=== PATIENT | male | born 1980 | race Caucasian/White ===

== ENCOUNTER 2016-07-09 20:53 | Emergency (ER) | payer BC, MEDICAID ==
[2016-07-09] MEDS ORDERED: CLINDAMYCIN 150 MG CAP As Ordered ONE (22:38)
[2016-07-09] MEDS ORDERED: IBUPROFEN 800 MG TAB As Ordered ONE (22:38)
--- NOTE | 2016-07-09 22:51 | EDDOCDS ---
Physician Documentation [facility] Name: Wilton Kimball Age: 36 yrs Sex: Male : 1980 Arrival Date: 07/09/2016 Time: 20:53 Bed Triage 2 Private MD: NO PRIMARY PHYSICIAN, . Disposition: 07/09/16 22:39 Discharged to Home/Self Care. Impression: Acute serous otitis media, bilateral, Acute upper respiratory infection, unspecified. - Condition is Stable. - Discharge Instructions: Otitis Media, Adult, Upper Respiratory Infection, Adult. - Prescriptions for Clindamycin HCl 300 mg Oral Capsule - take 1 capsule by ORAL route every 6 hours; 40 capsule. Fluticasone 50 mcg/actuation Nasal [place], Suspension - inhale 2 spray by INTRANASAL route once daily; 1 bottle. - Medication Reconciliation, Local Pharmacy Hours form. - Follow up: Private Physician; When: Call to arrange an appointment; Reason: Recheck today's complaints, Continuance of care. - Problem is new. - Symptoms are unchanged. Historical: - Allergies: PENICILLINS; - Home Meds: 1. none - PMHx: none; - PSHx: hernia repair; left ankle surgery; - Social history: Smoking status: Patient uses tobacco products, heavy tobacco smoker. No barriers to communication noted, The patient speaks fluent Japanese, Speaks appropriately for age. - Family history: Not pertinent. - : The pt / caregiver states he / she is not on anticoagulants. Home medication list is obtained from the patient. - Exposure Risk Screening:: None identified. Vital Signs: 07/09 20:54 BP 158 / 62; Pulse 101; Resp 18 S; Temp 98.1(O); Pulse Ox 98% on R/A; Weight 145.15 kg gr2 / 320 lbs (R); Height 5 ft. 10 in. (177.80 cm) (R); Pain 4/10; 20:54 Body Mass Index 45.91 (145.15 kg, 177.80 cm) gr2 MDM: 22:35 Clindamycin 300 mg PO once ordered. mo1 22:35 Ibuprofen 800 mg PO once ordered. mo1 22:43 Financial registration complete. kathleen 22:48 [facility] Payment Agreement was scanned into [employer] and attached to record. gjb Administered Medications: 22:47 Drug: Clindamycin 300 mg [clindamycin 150 mg capsule (2 caps)] Route: PO; [facility] 22:47 Drug: Ibuprofen 800 mg Route: PO; [facility] Signatures: Dee Perez RN RN jo3 Hafner, Jane, RN RN [facility] David Perez PA PA mo1 Beck, Gabriela gjb The chart was reviewed and I authenticate all verbal orders and agree with the evaluation and treatment provided.Attachments: 22:48 [facility] Payment Agreement kathleen MTDD
--- NOTE | 2016-07-09 22:51 | EDDOCDS ---
Nurse's Notes [facility] Name: Wilton Kimball Age: 36 yrs Sex: Male : 1980 Arrival Date: 07/09/2016 Time: 20:53 Bed Triage 2 Private MD: NO PRIMARY PHYSICIAN, . Diagnosis: Acute serous otitis media, bilateral;Acute upper respiratory infection, unspecified Presentation: 07/09 21:11 Presenting complaint: Patient states: Cold symptoms x2 days. Adult Sepsis Screening: jo3 The patient does not have new or worsening altered mentation. Patient's respiratory rate is less than 22. Systolic blood pressure is greater than 100. Patient has a qSOFA score of 0- Negative Sepsis Screen. Suicide/Homicide risk assessment- the patient denies having any suicidal and/or homicidal ideations and does not present with any other emotional, behavioral or mental health complaints. Status: Patient is not a service planner or dependent. Transition of care: patient was not received from another setting of care. 21:11 Acuity: TYE Level 4 jo3 21:11 Method Of Arrival: Walkin/Carried/Asstd jo3 Triage Assessment: 21:11 General: Appears in no apparent distress, Behavior is appropriate for age, cooperative, jo3 pleasant. HIV screening NA for this visit Offered previously. Neurological: Level of Consciousness is awake, alert, Oriented to person, place, time. Respiratory: Airway. Derm: Skin is pink, warm & dry. Historical: - Allergies: PENICILLINS; - Home Meds: 1. none - PMHx: none; - PSHx: hernia repair; left ankle surgery; - Social history: Smoking status: Patient uses tobacco products, heavy tobacco smoker. No barriers to communication noted, The patient speaks fluent Urdu, Speaks appropriately for age. - Family history: Not pertinent. - : The pt / caregiver states he / she is not on anticoagulants. Home medication list is obtained from the patient. - Exposure Risk Screening:: None identified. Screenin:47 Screening information is obtained from the patient. Fall risk: No risks identified. [facility] Assistance ADL's: requires no assistance with activities of daily living. Abuse/DV Screen: The patient / caregiver reports he/she is: not in a situation that causes fear, pain or injury. Nutritional screening: No deficits noted. Advance Directives: There is no active DNR order. home support is adequate. Assessment: 22:47 General: Appears in no apparent distress, comfortable, Behavior is appropriate for age, cjh cooperative, first contact with patient, reviewed discharge instructions, encouraged and answered questions, patient declines further needs. 22:47 Neurological: Level of Consciousness is awake, alert, Oriented to person, place, time. [facility] Respiratory: Airway is patent Respiratory effort is even, unlabored, Respiratory pattern is regular, symmetrical. Derm: Skin is pink, warm & dry. Vital Signs: 20:54 BP 158 / 62; Pulse 101; Resp 18 S; Temp 98.1(O); Pulse Ox 98% on R/A; Weight 145.15 kg gr2 (R); Height 5 ft. 10 in. (177.80 cm) (R); Pain 4/10; 20:54 Body Mass Index 45.91 (145.15 kg, 177.80 cm) gr2 Vitals: 20:54 Log In Time: July 09, 2016 at 20:54. gr2 ED Course: 20:54 Patient visited by Bailey Tarango. gr2 20:54 NO PRIMARY PHYSICIAN, . is Private Physician. gr2 20:54 Patient moved to Waiting gr2 20:56 Patient visited by Bailey Tarango. gr2 20:56 Patient moved to Pre RCE gr2 21:11 Triage Initiated jo3 21:12 Patient visited by Dee Perez RN. jo3 22:19 Patient moved to Triage 2 jf3 22:29 David Perez PA is PHCP. mo1 22:29 Ace Skelton DO is Attending Physician. mo1 22:31 Patient visited by David Perez PA. mo1 22:47 The patient / caregiver is instructed regarding the plan of care and ED course. cjh 22:47 No IV's were initiated during this patient's visit. No procedures done that require [facility] assistance. 22:48 [facility] [place] Agreement was scanned into [employer] and attached to record. gjb Administered Medications: 22:47 Drug: Clindamycin 300 mg [clindamycin 150 mg capsule (2 caps)] Route: PO; cj 22:47 Drug: Ibuprofen 800 mg Route: PO; [facility] Order Results: There are currently no results for this order. Outcome: 22:39 Discharge ordered by Provider. mo1 22:47 Discharge Assessment: Patient awake, alert and oriented x 3. No cognitive and/or [facility] functional deficits noted. Patient verbalized understanding of disposition instructions. patient administered narcotics - no. The following High Risk Discharge criteria are identified: None. Discharged to home ambulatory, with significant other. Condition: good Condition: stable Condition: improved. Discharge instructions given to patient, Instructed on discharge instructions, follow up and referral plans. medication usage, Demonstrated understanding of instructions, medications, Pt was receptive of discharge instructions/ teaching. Prescriptions given X 2. No special radiology studies were completed. Property :Personal belongings accompany Pt. 22:50 Patient left the ED. [facility] Signatures: Dee Perez,RN RN jo3 Adelina MaloneRN RN [facility] Bailey Tarango2 David Perez PA PA mo1 Josh Saavedra,RN RN jf3 Rosette Scherer DELLA
--- NOTE | 2016-07-11 23:52 | EDDOCDS ---
Nurse's Notes [facility] Name: Wilton Kimball Age: 36 yrs Sex: Male : 1980 Arrival Date: 07/09/2016 Time: 20:53 Bed Triage 2 Private MD: NO PRIMARY PHYSICIAN, . Diagnosis: Acute serous otitis media, bilateral;Acute upper respiratory infection, unspecified Presentation: 07/09 21:11 Presenting complaint: Patient states: Cold symptoms x2 days. Adult Sepsis Screening: jo3 The patient does not have new or worsening altered mentation. Patient's respiratory rate is less than 22. Systolic blood pressure is greater than 100. Patient has a qSOFA score of 0- Negative Sepsis Screen. Suicide/Homicide risk assessment- the patient denies having any suicidal and/or homicidal ideations and does not present with any other emotional, behavioral or mental health complaints. Status: Patient is not a chief optometry service or dependent. Transition of care: patient was not received from another setting of care. 21:11 Acuity: TYE Level 4 jo3 21:11 Method Of Arrival: Walkin/Carried/Asstd jo3 Triage Assessment: 21:11 General: Appears in no apparent distress, Behavior is appropriate for age, cooperative, jo3 pleasant. HIV screening NA for this visit Offered previously. Neurological: Level of Consciousness is awake, alert, Oriented to person, place, time. Respiratory: Airway. Derm: Skin is pink, warm & dry. Historical: - Allergies: PENICILLINS; - Home Meds: 1. none - PMHx: none; - PSHx: hernia repair; left ankle surgery; - Social history: Smoking status: Patient uses tobacco products, heavy tobacco smoker. No barriers to communication noted, The patient speaks fluent Telugu, Speaks appropriately for age. - Family history: Not pertinent. - : The pt / caregiver states he / she is not on anticoagulants. Home medication list is obtained from the patient. - Exposure Risk Screening:: None identified. Screenin:47 Screening information is obtained from the patient. Fall risk: No risks identified. [facility] Assistance ADL's: requires no assistance with activities of daily living. Abuse/DV Screen: The patient / caregiver reports he/she is: not in a situation that causes fear, pain or injury. Nutritional screening: No deficits noted. Advance Directives: There is no active DNR order. home support is adequate. Assessment: 22:47 General: Appears in no apparent distress, comfortable, Behavior is appropriate for age, [facility] cooperative, first contact with patient, reviewed discharge instructions, encouraged and answered questions, patient declines further needs. 22:47 Neurological: Level of Consciousness is awake, alert, Oriented to person, place, time. [facility] Respiratory: Airway is patent Respiratory effort is even, unlabored, Respiratory pattern is regular, symmetrical. Derm: Skin is pink, warm & dry. Vital Signs: 20:54 BP 158 / 62; Pulse 101; Resp 18 S; Temp 98.1(O); Pulse Ox 98% on R/A; Weight 145.15 kg gr2 (R); Height 5 ft. 10 in. (177.80 cm) (R); Pain 4/10; 20:54 Body Mass Index 45.91 (145.15 kg, 177.80 cm) gr2 Vitals: 20:54 Log In Time: July 09, 2016 at 20:54. gr2 ED Course: 20:54 Patient visited by Bailey Tarango. gr2 20:54 NO PRIMARY PHYSICIAN, . is Private Physician. gr2 20:54 Patient moved to Waiting gr2 20:56 Patient visited by Bailey Tarango. gr2 20:56 Patient moved to Pre RCE gr2 21:11 Triage Initiated jo3 21:12 Patient visited by Dee Perez RN. jo3 22:19 Patient moved to Triage 2 jf3 22:29 David Perez PA is PHCP. mo1 22:29 Ace Skelton DO is Attending Physician. mo1 22:31 Patient visited by David Perez PA. mo1 22:47 The patient / caregiver is instructed regarding the plan of care and ED course. [facility] 22:47 No IV's were initiated during this patient's visit. No procedures done that require [facility] assistance. 22:48 [facility] Payment Agreement was scanned into [employer] and attached to record. kathleen 07/10 10:56 T-Sheet-- Draft Copy was scanned into [employer] and attached to record. gb Administered Medications: 07/09 22:47 Drug: Clindamycin 300 mg [clindamycin 150 mg capsule (2 caps)] Route: PO; cjh 22:47 Drug: Ibuprofen 800 mg Route: PO; [facility] Order Results: There are currently no results for this order. Outcome: 22:39 Discharge ordered by Provider. mo1 22:47 Discharge Assessment: Patient awake, alert and oriented x 3. No cognitive and/or [facility] functional deficits noted. Patient verbalized understanding of disposition instructions. patient administered narcotics - no. The following High Risk Discharge criteria are identified: None. Discharged to home ambulatory, with significant other. Condition: good Condition: stable Condition: improved. Discharge instructions given to patient, Instructed on discharge instructions, follow up and referral plans. medication usage, Demonstrated understanding of instructions, medications, Pt was receptive of discharge instructions/ teaching. Prescriptions given X 2. No special radiology studies were completed. Property :Personal belongings accompany Pt. 22:50 Patient left the ED. [facility] Signatures: Kim Kelley, Reg Reg Dee Drake,RN RN gilmer3 Adelina MaloneRN RN [facility] Bailey Tarango gr2 David Perez PA PA mo1 Josh Saavedra,LAURIE RN luis felipe3 Rosette Scherer Chart Complete JOHND
--- NOTE | 2016-07-11 23:52 | EDDOCDS ---
Physician Documentation [facility] Name: Wilton Kimball Age: 36 yrs Sex: Male : 1980 Arrival Date: 07/09/2016 Time: 20:53 Bed Triage 2 Private MD: NO PRIMARY PHYSICIAN, . Disposition: 07/09/16 22:39 Discharged to Home/Self Care. Impression: Acute serous otitis media, bilateral, Acute upper respiratory infection, unspecified. - Condition is Stable. - Discharge Instructions: Otitis Media, Adult, Upper Respiratory Infection, Adult. - Prescriptions for Clindamycin HCl 300 mg Oral Capsule - take 1 capsule by ORAL route every 6 hours; 40 capsule. Fluticasone 50 mcg/actuation Nasal [place], Suspension - inhale 2 spray by INTRANASAL route once daily; 1 bottle. - Medication Reconciliation, Local Pharmacy Hours form. - Follow up: Private Physician; When: Call to arrange an appointment; Reason: Recheck today's complaints, Continuance of care. - Problem is new. - Symptoms are unchanged. Historical: - Allergies: PENICILLINS; - Home Meds: 1. none - PMHx: none; - PSHx: hernia repair; left ankle surgery; - Social history: Smoking status: Patient uses tobacco products, heavy tobacco smoker. No barriers to communication noted, The patient speaks fluent Yakut, Speaks appropriately for age. - Family history: Not pertinent. - : The pt / caregiver states he / she is not on anticoagulants. Home medication list is obtained from the patient. - Exposure Risk Screening:: None identified. Vital Signs: 07/09 20:54 BP 158 / 62; Pulse 101; Resp 18 S; Temp 98.1(O); Pulse Ox 98% on R/A; Weight 145.15 kg gr2 / 320 lbs (R); Height 5 ft. 10 in. (177.80 cm) (R); Pain 4/10; 20:54 Body Mass Index 45.91 (145.15 kg, 177.80 cm) gr2 MDM: 22:35 Clindamycin 300 mg PO once ordered. mo1 22:35 Ibuprofen 800 mg PO once ordered. mo1 22:43 Financial registration complete. banner 22:48 [facility] Payment Agreement was scanned into [employer] and attached to record. xiomara 07/10 10:56 T-Sheet-- Draft Copy was scanned into [employer] and attached to record. gb Administered Medications: 07/09 22:47 Drug: Clindamycin 300 mg [clindamycin 150 mg capsule (2 caps)] Route: PO; [facility] 22:47 Drug: Ibuprofen 800 mg Route: PO; [facility] Signatures: Kim Kelley, Reg Reg gb Dee Perez RN RN jo3 Adelina Malone RN RN [facility] David Perez PA PA mo1 Beck, Gabriela gjb The chart was reviewed and I authenticate all verbal orders and agree with the evaluation and treatment provided.Attachments: 22:48 [facility] Payment Agreement gjb 07/10 10:56 T-Sheet-- Draft Copy Chart Complete MTDD
--- NOTE | 2016-07-11 23:52 | EDDOCDS ---
Physician Documentation [facility] Name: Wilton Kimball Age: 36 yrs Sex: Male : 1980 Arrival Date: 07/09/2016 Time: 20:53 Bed Triage 2 Private MD: NO PRIMARY PHYSICIAN, . Disposition: 07/09/16 22:39 Discharged to Home/Self Care. Impression: Acute serous otitis media, bilateral, Acute upper respiratory infection, unspecified. - Condition is Stable. - Discharge Instructions: Otitis Media, Adult, Upper Respiratory Infection, Adult. - Prescriptions for Clindamycin HCl 300 mg Oral Capsule - take 1 capsule by ORAL route every 6 hours; 40 capsule. Fluticasone 50 mcg/actuation Nasal [place], Suspension - inhale 2 spray by INTRANASAL route once daily; 1 bottle. - Medication Reconciliation, Local Pharmacy Hours form. - Follow up: Private Physician; When: Call to arrange an appointment; Reason: Recheck today's complaints, Continuance of care. - Problem is new. - Symptoms are unchanged. Historical: - Allergies: PENICILLINS; - Home Meds: 1. none - PMHx: none; - PSHx: hernia repair; left ankle surgery; - Social history: Smoking status: Patient uses tobacco products, heavy tobacco smoker. No barriers to communication noted, The patient speaks fluent Serbian, Speaks appropriately for age. - Family history: Not pertinent. - : The pt / caregiver states he / she is not on anticoagulants. Home medication list is obtained from the patient. - Exposure Risk Screening:: None identified. Vital Signs: 07/09 20:54 BP 158 / 62; Pulse 101; Resp 18 S; Temp 98.1(O); Pulse Ox 98% on R/A; Weight 145.15 kg gr2 / 320 lbs (R); Height 5 ft. 10 in. (177.80 cm) (R); Pain 4/10; 20:54 Body Mass Index 45.91 (145.15 kg, 177.80 cm) gr2 MDM: 22:35 Clindamycin 300 mg PO once ordered. mo1 22:35 Ibuprofen 800 mg PO once ordered. mo1 22:43 Financial registration complete. [facility] 22:48 [facility] Payment Agreement was scanned into [employer] and attached to record. [employer] 07/10 10:56 T-Sheet-- Draft Copy was scanned into [employer] and attached to record. gb Administered Medications: 07/09 22:47 Drug: Clindamycin 300 mg [clindamycin 150 mg capsule (2 caps)] Route: PO; [facility] 22:47 Drug: Ibuprofen 800 mg Route: PO; [facility] Signatures: Kim Kelley, Reg Reg gb Dee Perez RN RN jo3 Adelina Malone RN RN [facility] David Perez PA PA mo1 Beck, Gabriela gjb The chart was reviewed and I authenticate all verbal orders and agree with the evaluation and treatment provided.Attachments: 22:48 [facility] Payment Agreement gjb 07/10 10:56 T-Sheet-- Draft Copy Chart Complete MTDD
== END 2016-07-09 22:50 | disposition home or self-care (01) ==
LOC: M ED 20:53
DX: H65.03 Acute serous otitis media, bilateral (principal); J06.9 Acute upper respiratory infection, unspecified; F17.210 Nicotine dependence, cigarettes, uncomplicated; Z88.0 Allergy status to penicillin

== ENCOUNTER 2016-07-11 00:47 | Emergency (ER) | payer BC, MEDICAID ==
[2016-07-11] MEDS ORDERED: BENZONATATE 100 MG CAP As Ordered ONE (01:55)
--- NOTE | 2016-07-11 02:06 | EDDOCDS ---
Nurse's Notes [facility] Name: Wilton Kimball Age: 36 yrs Sex: Male : 1980 Arrival Date: 07/11/2016 Time: 00:47 Bed I5 / M5 Private MD: Diagnosis: Unspecified superficial injuries of left front wall of thorax-strain of muscle;Cough;Acute upper respiratory infection, unspecified Presentation: 07/11 00:57 Presenting complaint: Patient states: per pt was seen here last night for URI, was tm5 coughing tonight & heard a "pop" to left ribs. Acute neurological deficits are not present. Mechanism of Injury: No Mechanism of Injury. Adult Sepsis Screening: The patient does not have new or worsening altered mentation. Patient's respiratory rate is less than 22. Systolic blood pressure is greater than 100. Patient has a qSOFA score of 0- Negative Sepsis Screen. Suicide/Homicide risk assessment- the patient denies having any suicidal and/or homicidal ideations and does not present with any other emotional, behavioral or mental health complaints. Status: Patient is not a food service driver or dependent. Transition of care: patient was not received from another setting of care. 00:57 Acuity: TYE Level 4 tm5 00:57 Method Of Arrival: Ambulance tm5 00:58 Presenting complaint: EMS states: Pt was diagnosed with URI yesterday. Was coughing and jo3 started having left sided rib pain. states she wasn't about to let pt walk 6 blocks to hospital. Triage Assessment: 01:01 General: Appears in no apparent distress. Pain: Location: left ribs Pain currently is 7 tm5 out of 10 on a pain scale. HIV screening NA for this visit Offered previously. Neurological: Level of Consciousness is awake, alert, Oriented to person, place, time. Respiratory: Airway is patent Respiratory effort is even, unlabored, Respiratory pattern is regular, symmetrical. Musculoskeletal: No deficits noted. Historical: - Allergies: PENICILLINS; - Home Meds: 1. clindamycin HCl 300 mg Oral cap 1 cap every 6 hours 2. Flonase 50 mcg/actuation Nasal spsn 2 sprays once daily - PMHx: none; - PSHx: none; - Social history: Smoking status: Patient uses tobacco products, current every day smoker. No barriers to communication noted. - Family history: No immediate family members are acutely ill. - : The pt / caregiver states he / she is not on anticoagulants. Home medication list is obtained from the patient. - Exposure Risk Screening:: None identified. Screenin:04 Screening information is obtained from the patient. Fall risk: No risks identified. ld5 Assistance ADL's: requires no assistance with activities of daily living. Abuse/DV Screen: The patient / caregiver reports he/she is: not in a situation that causes fear, pain or injury. Nutritional screening: No deficits noted. Advance Directives: There is no active DNR order. home support is adequate. Assessment: 02:04 General: Appears in no apparent distress, Behavior is cooperative. Neurological: Level ld5 of Consciousness is awake, alert. Respiratory: Airway is patent Respiratory effort is even, unlabored, Reports cough that is hacking, persistent. GI: Abdomen is obese. Derm: Skin is intact, Skin is dry. Vital Signs: 01:01 BP 162 / 80; Pulse 102; Resp 20; Temp 99.2(O); Pulse Ox 98% on R/A; Pain 7/10; tm5 Vitals: 01:01 Log In Time N/A - ambulance arrival. tm5 ED Course: 00:49 Patient visited by Mery Villarreal Reg. hs2 00:49 Patient moved to Waiting hs2 01:00 Triage Initiated tm5 01:03 Patient moved to I5 / M5 tm5 01:26 David Perez PA is PHCP. mo1 01:26 Ace Skelton DO is Attending Physician. mo1 01:45 Patient visited by David Perez PA. mo1 02:04 The patient / caregiver is instructed regarding the plan of care and ED course. Patient ld5 has correct armband on for positive identification. 02:04 No IV's were initiated during this patient's visit. No procedures done that require ld5 assistance. 02:05 Patient visited by Vicki Ramirez RN. ld5 Administered Medications: 02:04 Drug: Tessalon 200 mg Route: PO; ld5 Order Results: There are currently no results for this order. Outcome: 01:53 Discharge ordered by Provider. mo1 02:04 Discharge Assessment: Patient awake, alert and oriented x 3. No cognitive and/or ld5 functional deficits noted. Patient verbalized understanding of disposition instructions. patient administered narcotics - no. The following High Risk Discharge criteria are identified: None. Discharged to home ambulatory, with significant other. Condition: stable. Discharge instructions given to patient, significant other, Instructed on discharge instructions, follow up and referral plans. medication usage, Demonstrated understanding of instructions, medications, Pt was receptive of discharge instructions/ teaching. Prescriptions given X 1. No special radiology studies were completed. Property :Personal belongings accompany Pt. 02:05 Patient left the ED. ld5 Signatures: Dee Perez,RN RN jo3 Vicki RamirezRN RN ld5 David Perez PA PA mo1 Mery Villarreal, Reg Reg hs2 Clare Gonzalez,RN RN tm5 MTDD
--- NOTE | 2016-07-11 02:06 | EDDOCDS ---
Physician Documentation [facility] Name: Wilton Kimball Age: 36 yrs Sex: Male : 1980 Arrival Date: 07/11/2016 Time: 00:47 Bed I5 / M5 Private MD: Disposition: 07/11/16 01:53 Discharged to Home/Self Care. Impression: Unspecified superficial injuries of left front wall of thorax - strain of muscle, Cough, Acute upper respiratory infection, unspecified. - Condition is Stable. - Discharge Instructions: Chest Wall Pain, Muscle Strain. - Prescriptions for benzonatate 200 mg Oral Capsule - take 1 capsule by ORAL route 3 times per day As needed; 30 capsule. - Medication Reconciliation, Local Pharmacy Hours form. - Follow up: Private Physician; When: Call to arrange an appointment; Reason: Recheck today's complaints, Continuance of care. - Problem is new. - Symptoms are unchanged. Historical: - Allergies: PENICILLINS; - Home Meds: 1. clindamycin HCl 300 mg Oral cap 1 cap every 6 hours 2. Flonase 50 mcg/actuation Nasal spsn 2 sprays once daily - PMHx: none; - PSHx: none; - Social history: Smoking status: Patient uses tobacco products, current every day smoker. No barriers to communication noted. - Family history: No immediate family members are acutely ill. - : The pt / caregiver states he / she is not on anticoagulants. Home medication list is obtained from the patient. - Exposure Risk Screening:: None identified. Vital Signs: 07/11 01:01 BP 162 / 80; Pulse 102; Resp 20; Temp 99.2(O); Pulse Ox 98% on R/A; Pain 7/10; tm5 MDM: 01:52 Tessalon 200 mg PO once ordered. mo1 02:03 Financial registration complete. [facility] Administered Medications: 02:04 Drug: Tessalon 200 mg Route: PO; ld5 Signatures: Vicki RamirezRN RN ld5 David Perez PA PA mo1 Kandice Clifford [facility] Clare Gonzalez RN RN tm5 MTDD
--- NOTE | 2016-07-13 03:06 | EDDOCDS ---
Physician Documentation [facility] Name: Wilton Kimball Age: 36 yrs Sex: Male : 1980 Arrival Date: 07/11/2016 Time: 00:47 Bed I5 / M5 Private MD: Disposition: 07/11/16 01:53 Discharged to Home/Self Care. Impression: Unspecified superficial injuries of left front wall of thorax - strain of muscle, Cough, Acute upper respiratory infection, unspecified. - Condition is Stable. - Discharge Instructions: Chest Wall Pain, Muscle Strain. - Prescriptions for benzonatate 200 mg Oral Capsule - take 1 capsule by ORAL route 3 times per day As needed; 30 capsule. - Medication Reconciliation, Local Pharmacy Hours form. - Follow up: Private Physician; When: Call to arrange an appointment; Reason: Recheck today's complaints, Continuance of care. - Problem is new. - Symptoms are unchanged. Historical: - Allergies: PENICILLINS; - Home Meds: 1. clindamycin HCl 300 mg Oral cap 1 cap every 6 hours 2. Flonase 50 mcg/actuation Nasal spsn 2 sprays once daily - PMHx: none; - PSHx: none; - Social history: Smoking status: Patient uses tobacco products, current every day smoker. No barriers to communication noted. - Family history: No immediate family members are acutely ill. - : The pt / caregiver states he / she is not on anticoagulants. Home medication list is obtained from the patient. - Exposure Risk Screening:: None identified. Vital Signs: 07/11 01:01 BP 162 / 80; Pulse 102; Resp 20; Temp 99.2(O); Pulse Ox 98% on R/A; Pain 7/10; tm5 MDM: 01:52 Tessalon 200 mg PO once ordered. mo1 02:03 Financial registration complete. [facility] 02:11 [facility] Payment Agreement was scanned into [employer] and attached to record. [facility] 14:05 T-Sheet-- Draft Copy was scanned into [employer] and attached to record. gb Administered Medications: 02:04 Drug: Tessalon 200 mg Route: PO; ld5 Signatures: Kim Kelley, Reg Reg Vicki Ramirez,RN RN ld5 David Perez PA PA mo1 Kandice Clifford [facility] Matice,Clare,RN RN tm5 The chart was reviewed and I authenticate all verbal orders and agree with the evaluation and treatment provided.Attachments: 02:11 [facility] Payment Agreement [facility] 14:05 T-Sheet-- Draft Copy gb Chart Complete MTDD
--- NOTE | 2016-07-13 03:06 | EDDOCDS ---
Nurse's Notes [facility] Name: Wilton Kimball Age: 36 yrs Sex: Male : 1980 Arrival Date: 07/11/2016 Time: 00:47 Bed I5 / M5 Private MD: Diagnosis: Unspecified superficial injuries of left front wall of thorax-strain of muscle;Cough;Acute upper respiratory infection, unspecified Presentation: 07/11 00:57 Presenting complaint: Patient states: per pt was seen here last night for URI, was tm5 coughing tonight & heard a "pop" to left ribs. Acute neurological deficits are not present. Mechanism of Injury: No Mechanism of Injury. Adult Sepsis Screening: The patient does not have new or worsening altered mentation. Patient's respiratory rate is less than 22. Systolic blood pressure is greater than 100. Patient has a qSOFA score of 0- Negative Sepsis Screen. Suicide/Homicide risk assessment- the patient denies having any suicidal and/or homicidal ideations and does not present with any other emotional, behavioral or mental health complaints. 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 Transition of care: patient was not received from another setting of care. 00:57 Acuity: TYE Level 4 tm5 00:57 Method Of Arrival: Ambulance tm5 00:58 Presenting complaint: EMS states: Pt was diagnosed with URI yesterday. Was coughing and jo3 started having left sided rib pain. states she wasn't about to let pt walk 6 blocks to hospital. Triage Assessment: 01:01 General: Appears in no apparent distress. Pain: Location: left ribs Pain currently is 7 tm5 out of 10 on a pain scale. HIV screening NA for this visit Offered previously. Neurological: Level of Consciousness is awake, alert, Oriented to person, place, time. Respiratory: Airway is patent Respiratory effort is even, unlabored, Respiratory pattern is regular, symmetrical. Musculoskeletal: No deficits noted. Historical: - Allergies: PENICILLINS; - Home Meds: 1. clindamycin HCl 300 mg Oral cap 1 cap every 6 hours 2. Flonase 50 mcg/actuation Nasal spsn 2 sprays once daily - PMHx: none; - PSHx: none; - Social history: Smoking status: Patient uses tobacco products, current every day smoker. No barriers to communication noted. - Family history: No immediate family members are acutely ill. - : The pt / caregiver states he / she is not on anticoagulants. Home medication list is obtained from the patient. - Exposure Risk Screening:: None identified. Screenin:04 Screening information is obtained from the patient. Fall risk: No risks identified. ld5 Assistance ADL's: requires no assistance with activities of daily living. Abuse/DV Screen: The patient / caregiver reports he/she is: not in a situation that causes fear, pain or injury. Nutritional screening: No deficits noted. Advance Directives: There is no active DNR order. home support is adequate. Assessment: 02:04 General: Appears in no apparent distress, Behavior is cooperative. Neurological: Level ld5 of Consciousness is awake, alert. Respiratory: Airway is patent Respiratory effort is even, unlabored, Reports cough that is hacking, persistent. GI: Abdomen is obese. Derm: Skin is intact, Skin is dry. Vital Signs: 01:01 BP 162 / 80; Pulse 102; Resp 20; Temp 99.2(O); Pulse Ox 98% on R/A; Pain 7/10; tm5 Vitals: 01:01 Log In Time N/A - ambulance arrival. tm5 ED Course: 00:49 Patient visited by Mery Villarreal Reg. hs2 00:49 Patient moved to Waiting hs2 01:00 Triage Initiated tm5 01:03 Patient moved to I5 / M5 tm5 01:26 David Perez PA is PHCP. mo1 01:26 Ace Skelton DO is Attending Physician. mo1 01:45 Patient visited by David Perez PA. mo1 02:04 The patient / caregiver is instructed regarding the plan of care and ED course. Patient ld5 has correct armband on for positive identification. 02:04 No IV's were initiated during this patient's visit. No procedures done that require ld5 assistance. 02:05 Patient visited by Vicki Ramirez RN. ld5 02:11 [facility] Payment Agreement was scanned into [employer] and attached to record. [facility] 14:05 T-Sheet-- Draft Copy was scanned into [employer] and attached to record. gb Administered Medications: 02:04 Drug: Tessalon 200 mg Route: PO; ld5 Order Results: There are currently no results for this order. Outcome: 01:53 Discharge ordered by Provider. mo1 02:04 Discharge Assessment: Patient awake, alert and oriented x 3. No cognitive and/or ld5 functional deficits noted. Patient verbalized understanding of disposition instructions. patient administered narcotics - no. The following High Risk Discharge criteria are identified: None. Discharged to home ambulatory, with significant other. Condition: stable. Discharge instructions given to patient, significant other, Instructed on discharge instructions, follow up and referral plans. medication usage, Demonstrated understanding of instructions, medications, Pt was receptive of discharge instructions/ teaching. Prescriptions given X 1. No special radiology studies were completed. Property :Personal belongings accompany Pt. 02:05 Patient left the ED. ld5 Signatures: Kim Kelley, Reg Reg gb Dee PerezRN RN jo3 Vicki Ramirez,RN RN ld5 David Perez PA PA mo1 Kandice Clifford Mery Atwood, Reg Reg hs2 Clare Gonzalez,RN RN tm5 Chart Complete [facility]
--- NOTE | 2016-07-13 03:06 | EDDOCDS ---
Physician Documentation [facility] Name: Wilton Kimball Age: 36 yrs Sex: Male : 1980 Arrival Date: 07/11/2016 Time: 00:47 Bed I5 / M5 Private MD: Disposition: 07/11/16 01:53 Discharged to Home/Self Care. Impression: Unspecified superficial injuries of left front wall of thorax - strain of muscle, Cough, Acute upper respiratory infection, unspecified. - Condition is Stable. - Discharge Instructions: Chest Wall Pain, Muscle Strain. - Prescriptions for benzonatate 200 mg Oral Capsule - take 1 capsule by ORAL route 3 times per day As needed; 30 capsule. - Medication Reconciliation, Local Pharmacy Hours form. - Follow up: Private Physician; When: Call to arrange an appointment; Reason: Recheck today's complaints, Continuance of care. - Problem is new. - Symptoms are unchanged. Historical: - Allergies: PENICILLINS; - Home Meds: 1. clindamycin HCl 300 mg Oral cap 1 cap every 6 hours 2. Flonase 50 mcg/actuation Nasal spsn 2 sprays once daily - PMHx: none; - PSHx: none; - Social history: Smoking status: Patient uses tobacco products, current every day smoker. No barriers to communication noted. - Family history: No immediate family members are acutely ill. - : The pt / caregiver states he / she is not on anticoagulants. Home medication list is obtained from the patient. - Exposure Risk Screening:: None identified. Vital Signs: 07/11 01:01 BP 162 / 80; Pulse 102; Resp 20; Temp 99.2(O); Pulse Ox 98% on R/A; Pain 7/10; tm5 MDM: 01:52 Tessalon 200 mg PO once ordered. mo1 02:03 Financial registration complete. [facility] [address] 02:11 [facility] Payment Agreement was scanned into [employer] and attached to record. [facility] [address] 14:05 T-Sheet-- Draft Copy was scanned into [employer] and attached to record. gb Administered Medications: 02:04 Drug: Tessalon 200 mg Route: PO; ld5 Signatures: Kim Kelley, Reg Reg Vicki Ramirez,RN RN ld5 David Perez PA PA mo1 Kandice Clifford [facility] [address] Matice,Clare,RN RN tm5 The chart was reviewed and I authenticate all verbal orders and agree with the evaluation and treatment provided.Attachments: 02:11 [facility] Payment Agreement [facility] 14:05 T-Sheet-- Draft Copy gb Chart Complete MTDD
== END 2016-07-11 02:05 | disposition home or self-care (01) ==
LOC: M ED 00:47
DX: S29.011A Strain of muscle and tendon of front wall of thorax, initial encounter (principal); X58.XXXA Exposure to other specified factors, initial encounter; Y92.89 Other specified places as the place of occurrence of the external cause; Y93.89 Activity, other specified; Y99.8 Other external cause status; J06.9 Acute upper respiratory infection, unspecified; F17.210 Nicotine dependence, cigarettes, uncomplicated; Z79.899 Other long term (current) drug therapy; Z88.0 Allergy status to penicillin

== ENCOUNTER → 2016-12-11 | Outpatient (CLI) | payer MEDICAID ==
[2016-12-11 10:12] LABS: BASO # 0.1 K/mm3 (0.0-0.2); EOS # 0.3 K/mm3 (0.0-0.50); EOS % 4.1 % (0.0-3.0); LYMPH # 2.7 K/mm3 (1.5-4.5); LYMPH % 36.1 % (24.0-44.0); MEAN CORPUSCULAR HEMOGLOBIN 34.1 pg (27.0-33.0); MEAN CORPUSCULAR HGB CONC 35.3 g/dl (32.0-36.5); MEAN CORPUSCULAR VOLUME 96.6 fl (80.0-96.0); MONO # 0.5 K/mm3 (0.0-0.8); MONO % 6.5 % (0.0-5.0); NEUTROPHILS # 3.5 K/mm3 (1.8-7.7); NEUTROPHILS % 49.9 % (36.0-66.0); WHITE BLOOD COUNT 6.9 K/mm3 (4.0-10.0)
[2016-12-11 10:48] LABS: ALBUMIN 4.1 GM/DL (3.2-5.2); ALBUMIN/GLOBULIN RATIO 1.58 (1.00-1.93); ALKALINE PHOSPHATASE 53 U/L (45-117); ALT/SGPT 89 U/L (12-78); ANION GAP 12 MEQ/L (8-16); AST/SGOT 37 U/L (15-37); BILIRUBIN,TOTAL 0.4 MG/DL (0.2-1.0); BLOOD UREA NITROGEN 10 MG/DL (7-18); CALCIUM LEVEL 8.5 MG/DL (8.5-10.1); CARBON DIOXIDE LEVEL 22 MEQ/L (21-32); CHLORIDE LEVEL 107 MEQ/L (98-107); CHOLESTEROL LEVEL 201 MG/DL (<200); CREATININE FOR GFR 0.83 MG/DL (0.70-1.30); FREE T4 1.02 NG/DL (0.76-1.46); GLOMERULAR FILTRATION RATE > 60.0 (>60); GLUCOSE, FASTING 102 MG/DL (70-105); SODIUM LEVEL 141 MEQ/L (136-145); TOTAL PROTEIN 6.7 GM/DL (6.4-8.2); TRIGLYCERIDES LEVEL 210 MG/DL (<150)
--- NOTE | 2016-12-11 10:57 | REP ---
SACRUM/COCCYX, THREE VIEWS: HISTORY: Back pain. There is no acute fracture, subluxation or bone lesion. The L4-5 and L5-S1 intervertebral discs are normal in height. An anterior osteophyte is present on L4. IMPRESSION: Degenerative change as described above. Signed by Fernando Quinn MD 12/11/2016 11:00 A
== END ==
LOC: M LAB 09:03
PROVIDERS: ATTEND Family Medicine
DX: Z00.00 Encounter for general adult medical examination without abnormal findings (principal); M53.3 Sacrococcygeal disorders, not elsewhere classified; M51.36 Other intervertebral disc degeneration, lumbar region; M51.37 Other intervertebral disc degeneration, lumbosacral region

== ENCOUNTER → 2017-01-27 | Outpatient (CLI) | payer MEDICAID ==
--- NOTE | 2017-01-27 14:55 | REP ---
THORACIC SPINE: AP and lateral views of thoracic spine are performed. There is no compression fracture or malalignment. There is normal thoracic kyphosis. There is mild diffuse spurring with a larger bridging osteophyte at the T8-9 level. There is mild disc space narrowing and subchondral sclerosis at all levels. The posterior elements appear intact. IMPRESSION: Mild diffuse degenerative changes. Signed by Richard Birch MD 01/27/2017 04:46 P
--- NOTE | 2017-01-27 14:56 | REP ---
LUMBOSACRAL SPINE: Five views of the lumbosacral spine performed. There is no compression fracture or malalignment. There is no spondylolysis or spondylolisthesis. There is very mild disc space narrowing at L5-S1 with sclerosis at the posterior facet joints. The posterior elements are intact. IMPRESSION: Mild degenerative changes L5-S1. Signed by Richard Birch MD 01/27/2017 04:46 P
--- NOTE | 2017-01-27 14:58 | REP ---
SACROILIAC JOINTS: Four views of the sacroiliac joints are performed. There is no acute fracture or dislocation. There is mild narrowing of the inferior sacroiliac joints bilaterally with subchondral sclerosis on the iliac side of the joints. Pattern is fairly symmetrical. IMPRESSION: Mild arthritic changes bilateral sacroiliac joints. Signed by Richard Birch MD 01/27/2017 04:46 P
[2017-01-27 15:23] LABS: ALBUMIN 4.1 GM/DL (3.2-5.2); ALBUMIN/GLOBULIN RATIO 1.32 (1.00-1.93); ALKALINE PHOSPHATASE 71 U/L (45-117); ALT/SGPT 100 U/L (12-78); ANION GAP 6 MEQ/L (8-16); AST/SGOT 48 U/L (15-37); BILIRUBIN,TOTAL 0.4 MG/DL (0.2-1.0); BLOOD UREA NITROGEN 12 MG/DL (7-18); CALCIUM LEVEL 9.2 MG/DL (8.5-10.1); CARBON DIOXIDE LEVEL 28 MEQ/L (21-32); CHLORIDE LEVEL 105 MEQ/L (98-107); FERRITIN 917 NG/ML (26-388); GLOMERULAR FILTRATION RATE > 60.0 (>60); GLUCOSE, FASTING 176 MG/DL (70-105); SODIUM LEVEL 139 MEQ/L (136-145); TOTAL PROTEIN 7.2 GM/DL (6.4-8.2)
[2017-01-28 14:15] LABS: ALPHA 1 ANTITRYPSIN 148 mg/dL (90-200)
== END ==
LOC: M LAB 13:23
PROVIDERS: ATTEND Family Medicine
DX: M54.5 Low back pain (principal); R94.5 Abnormal results of liver function studies

== ENCOUNTER → 2017-03-13 | Outpatient (CLI) | payer MEDICAID ==
--- NOTE | 2017-03-13 09:03 | REP ---
Abdominal right upper quadrant ultrasound: There is a negative Suazo's sign to transducer pressure. There is no cholelithiasis, gallbladder wall thickening or pericholecystic fluid. There is no intrahepatic or extrahepatic biliary duct dilatation, the common duct measures 4.0 mm in diameter. The hepatic parenchyma demonstrates increased echogenicity compatible with hepatocellular disease such as hepato steatosis. There are no focal hepatic masses. Note from the integrity engineer states that the liver appears enlarged. There is no cranial caudad and liver measurement. The pancreas is obscured by bowel gas. There is no right renal hydronephrosis, calculus, mass or cyst. The right kidney is normal size measuring 12.0 cm craniocaudad length. There is no right upper quadrant abdominal free fluid. Impression: The hepatic parenchyma is hyperechoic compatible with hepatocellular disease such as hepato steatosis. Otherwise, negative abdominal right upper quadrant ultrasound. Signed by Richard Ingram MD 03/13/2017 08:55 A
== END ==
LOC: M RAD 08:23
PROVIDERS: ATTEND Family Medicine
DX: R74.8 Abnormal levels of other serum enzymes (principal)

== ENCOUNTER 2017-04-30 20:06 | Emergency (ER) | payer MEDICAID ==
[~2017-04-30] VITALS: Ht 172.7 cm; Wt 159.1 kg
[2017-04-30 20:07] VITALS: BP 157/80
[2017-04-30] MEDS ORDERED: CHAN1PAK9 (20:28)
[2017-04-30] MEDS ORDERED: NORCOTAB PO (20:34)
[2017-04-30] MEDS ORDERED: PENI500T PO (20:34)
[2017-04-30] MEDS ORDERED: PENICILLIN V POTASSIUM 500 MG TAB PO ONE (20:45)
[2017-04-30] MEDS ORDERED: NORCO 5/325MG TABLET (BULK FOR ED) PO ONE (20:45)
== END 2017-04-30 20:53 | disposition home or self-care (01) ==
LOC: M ED 20:06
DX: K05.10 Chronic gingivitis, plaque induced (principal); Z72.0 Tobacco use

== ENCOUNTER 2017-05-12 08:56 | Emergency (ER) | payer MEDICAID ==
[~2017-05-12] VITALS: Ht 175.3 cm; Wt 163.6 kg
[2017-05-12 08:56] VITALS: BP 171/84
[~2017-05-12 08:56] MED LIST: CHAN1PAK9; NORCOTAB PO; PENI500T PO
[2017-05-12] MEDS ORDERED: TESS100C PO (10:01)
== END 2017-05-12 10:08 | disposition home or self-care (01) ==
LOC: M ED 08:56
DX: J02.9 Acute pharyngitis, unspecified (principal); F17.210 Nicotine dependence, cigarettes, uncomplicated

== ENCOUNTER 2017-05-15 12:24 | Emergency (ER) | payer MEDICAID ==
[~2017-05-15] VITALS: Ht 172.7 cm; Wt 163.6 kg
[~2017-05-15 12:24] MED LIST changes: +TESS100C PO
[2017-05-15 12:25] VITALS: BP 146/79
[2017-05-15] MEDS ORDERED: IBUP-1022 PO (13:24)
[2017-05-15] MEDS ORDERED: NORCOTAB PO (13:24)
[2017-05-15] MEDS ORDERED: ACETAMINOPHEN TAB 650MG DOSE (2X325MG) PO ONE (13:30)
[2017-05-15] MEDS ORDERED: IBUPROFEN 800 MG TAB PO ONE (13:30)
[2017-05-16] MEDS ORDERED: CLEO300C2 PO (16:12)
== END 2017-05-15 13:37 | disposition home or self-care (01) ==
LOC: M ED 12:24
DX: K02.9 Dental caries, unspecified (principal); F17.210 Nicotine dependence, cigarettes, uncomplicated

== ENCOUNTER 2017-05-16 13:52 | Emergency (ER) | payer MEDICAID ==
[~2017-05-16] VITALS: Ht 172.7 cm; Wt 163.6 kg
[~2017-05-16 13:52] MED LIST changes: +IBUP-1022 PO
[2017-05-16] MEDS ORDERED: CLEO300C2 PO (16:12)
[2017-05-16 16:15] VITALS: BP 143/89
== END 2017-05-16 16:18 | disposition home or self-care (01) ==
LOC: M ED 13:52
DX: K04.7 Periapical abscess without sinus (principal); F17.210 Nicotine dependence, cigarettes, uncomplicated; Z79.899 Other long term (current) drug therapy

== ENCOUNTER → 2017-07-29 | Outpatient (CLI) | payer MEDICAID ==
[2017-07-29 12:49] LABS: BASO # 0.1 10^3/uL (0.0-0.2); BASO % 0.4 % (0.0-1.0); EOS # 0.3 10^3/uL (0.0-0.50); EOS % 2.7 % (0.0-3.0); HEMOGLOBIN 15.9 g/dl (14.0-18.0); IMMATURE GRANULOCYTE % 0.3 % (0-3.0); LYMPH # 2.3 10^3/uL (1.5-4.5); LYMPH % 20.4 % (24.0-44.0); MEAN CORPUSCULAR HEMOGLOBIN 32.3 pg (27.0-33.0); MEAN CORPUSCULAR HGB CONC 33.8 g/dl (32.0-36.5); MEAN CORPUSCULAR VOLUME 95.3 fl (80.0-96.0); MONO # 0.8 10^3/uL (0.0-0.8); MONO % 7.3 % (0.0-5.0); NEUTROPHILS # 7.8 10^3/uL (1.8-7.7); NEUTROPHILS % 68.9 % (36.0-66.0); PLATELET COUNT, AUTOMATED 185 10^3/uL (150-450); RED BLOOD COUNT 4.93 10^6/uL (4.30-6.10); RED CELL DISTRIBUTION WIDTH 12.7 % (11.5-14.5); WHITE BLOOD COUNT 11.3 10^3/uL (4.0-10.0)
[2017-07-29 13:26] LABS: HEPATITIS B SURFACE ANTIBODY NEGATIVE (POSITIVE)
[2017-07-29 13:35] LABS: ALBUMIN/GLOBULIN RATIO 1.21 (1.00-1.93); ALKALINE PHOSPHATASE 72 U/L (45-117); ALT/SGPT 124 U/L (12-78); ANION GAP 9 MEQ/L (8-16); AST/SGOT 62 U/L (7-37); BILIRUBIN,TOTAL 0.4 MG/DL (0.2-1.0); BLOOD UREA NITROGEN 14 MG/DL (7-18); CALCIUM LEVEL 9.2 MG/DL (8.5-10.1); CARBON DIOXIDE LEVEL 26 MEQ/L (21-32); CHLORIDE LEVEL 104 MEQ/L (98-107); CREATININE FOR GFR 0.97 MG/DL (0.70-1.30); FERRITIN 1009 NG/ML (26-388); GLOMERULAR FILTRATION RATE > 60.0 (>60); GLUCOSE, FASTING 127 MG/DL (70-100); IRON (FE) 58 UG/DL (65-175); POTASSIUM SERUM 4.3 MEQ/L (3.5-5.1); SODIUM LEVEL 139 MEQ/L (136-145); TOTAL IRON BINDING CAPACITY 264 UG/DL (250-450); TOTAL PROTEIN 7.3 GM/DL (6.4-8.2)
[2017-07-29 13:36] LABS: HEPATITIS B SURFACE ANTIGEN NEGATIVE (NEGATIVE)
[2017-08-03 14:10] LABS: ANTI-MITOCHONDRIAL ANTIBODY 15.2 Units (0.0-20.0); ANTI-SMOOTH MUSCLE ANTIBODY 8 Units (0-19); ANTINUCLEAR ANTIBODIES DIRECT Negative (Negative); CERULOPLASMIN 25.9 mg/dL (16.0-31.0); HEPATITIS A IgG TOTAL Positive (Negative); LIVER-KIDNEY MICROSOMAL ABY 0.7 Units (0.0-20.0)
== END ==
LOC: M LAB 11:48
DX: R94.5 Abnormal results of liver function studies (principal)
CPT/HCPCS: 83550

== ENCOUNTER → 2017-10-23 | Outpatient (REF) | payer MEDICAID | LOC: M LAB REF 09:40 | DX: N46.9 Male infertility, unspecified (principal) ==

== ENCOUNTER → 2017-10-30 | Outpatient (REF) | payer MEDICAID ==
[2017-10-30 11:52] LABS: % NORMAL FORMS 21 % (>=4); IMMOTILITY 18 %; NON PROGRESSIVE MOTILITY (c) 9 %; PROGRESSIVE MOTILITY (a) 73 % (>=32); SEMEN APPEARANCE OPAQUE (OPAQUE); SEMEN VISCOSITY VISCOUS (LIQUID); SEMEN pH 8.5 (7.0-8.0); SPERM ABNORMAL FORMS WBC'S NOTED; SPERM CONCENTRATION 124.2 M/ml (>=15.0); TOTAL MOTILITY 82 % (>=40); WBC CONCENTRATION >1 M/ml (<=1 M/ml)
[2017-10-30 11:53] LABS: SPERM# 124.2 M/Ejac (>=39); TOTAL FUNCTIONAL 36.6 M/Ejac.; TOTAL PROGRESSIVE SPERM 90.4 M/Ejac.
== END ==
LOC: M LAB REF 11:14
DX: N46.9 Male infertility, unspecified (principal)

== ENCOUNTER → 2018-01-04 | Outpatient (CLI) | payer MEDICAID ==
[2018-01-04 09:17] LABS: HEMATOCRIT 44.8 % (42.0-52.0); HEMOGLOBIN 15.2 g/dl (13.5-17.5); MEAN CORPUSCULAR HEMOGLOBIN 33.1 pg (27.0-33.0); MEAN CORPUSCULAR HGB CONC 33.9 g/dl (32.0-36.5); MEAN CORPUSCULAR VOLUME 97.6 fl (80.0-96.0); PLATELET COUNT, AUTOMATED 178 10^3/uL (150-450); RED BLOOD COUNT 4.59 10^6/uL (4.30-6.10); RED CELL DISTRIBUTION WIDTH 12.7 % (11.5-14.5); WHITE BLOOD COUNT 6.9 10^3/uL (4.0-10.0)
[2018-01-04 09:54] LABS: ALBUMIN 3.9 GM/DL (3.2-5.2); ALKALINE PHOSPHATASE 65 U/L (45-117); ALT/SGPT 62 U/L (12-78); AST/SGOT 30 U/L (7-37); BILIRUBIN,DIRECT 0.1 MG/DL (0.0-0.2); BILIRUBIN,TOTAL 0.4 MG/DL (0.2-1.0); FERRITIN 526 NG/ML (26-388); IRON (FE) 117 UG/DL (65-175); PERCENT SATURATION 48.8 % (19.7-50.0); TOTAL IRON BINDING CAPACITY 240 UG/DL (250-450); TOTAL PROTEIN 6.9 GM/DL (6.4-8.2)
[2018-01-09 00:07] LABS: ALPHA 2-MACROGLOBULINS,QN 146 mg/dL (110-276); ALT (SGPT) P5P 50 IU/L (0-55); APOLIPOPROTEIN A-1 131 mg/dL (101-178); AST (SGOT) P5P 37 IU/L (0-40); BILIRUBIN, TOTAL 0.4 mg/dL (0.0-1.2); CHOLESTEROL TOTAL 235 mg/dL (100-199); FIBROSIS SCORE 0.14 (0.00-0.21); GGT 48 IU/L (0-65); GLUCOSE, SERUM 120 mg/dL (65-99); HAPTOGLOBIN 98 mg/dL (34-200); HEIGHT 68 in (.); STEATOSIS SCORE 0.69 (0.00-0.30); TRIGLYCERIDES 140 mg/dL (0-149); WEIGHT 356 LBS (.)
== END ==
LOC: M LAB 08:19
DX: R94.5 Abnormal results of liver function studies (principal); R19.7 Diarrhea, unspecified
CPT/HCPCS: 83550

== ENCOUNTER → 2018-01-04 | Outpatient (CLI) | payer BC, MEDICAID ==
[2018-01-04 09:17] LABS: BASO # 0.1 10^3/uL (0.0-0.2); BASO % 0.7 % (0.0-1.0); EOS # 0.3 10^3/uL (0.0-0.50); EOS % 4.3 % (0.0-3.0); HEMATOCRIT 43.9 % (42.0-52.0); HEMOGLOBIN 15.2 g/dl (13.5-17.5); IMMATURE GRANULOCYTE % 0.1 % (0-3.0); LYMPH # 2.1 10^3/uL (1.5-4.5); LYMPH % 30.6 % (24.0-44.0); MEAN CORPUSCULAR HEMOGLOBIN 33.3 pg (27.0-33.0); MEAN CORPUSCULAR HGB CONC 34.6 g/dl (32.0-36.5); MEAN CORPUSCULAR VOLUME 96.1 fl (80.0-96.0); MONO # 0.7 10^3/uL (0.0-0.8); MONO % 9.9 % (0.0-5.0); NEUTROPHILS # 3.8 10^3/uL (1.8-7.7); NEUTROPHILS % 54.4 % (36.0-66.0); PLATELET COUNT, AUTOMATED 169 10^3/uL (150-450); RED BLOOD COUNT 4.57 10^6/uL (4.30-6.10); RED CELL DISTRIBUTION WIDTH 12.7 % (11.5-14.5)
[2018-01-04 09:42] LABS: ESTIMATED AVERAGE GLUCOSE 140 MG/DL (60-110); HEMOGLOBIN A1c 6.5 %
[2018-01-04 09:57] LABS: HEPATITIS B SURFACE ANTIGEN NEGATIVE (NEGATIVE)
[2018-01-04 10:19] LABS: ALBUMIN 3.9 GM/DL (3.2-5.2); ALBUMIN/GLOBULIN RATIO 1.34 (1.00-1.93); ALKALINE PHOSPHATASE 65 U/L (45-117); ALT/SGPT 61 U/L (12-78); ANION GAP 7 MEQ/L (8-16); AST/SGOT 30 U/L (7-37); BILIRUBIN,TOTAL 0.5 MG/DL (0.2-1.0); BLOOD UREA NITROGEN 14 MG/DL (7-18); CALCIUM LEVEL 8.7 MG/DL (8.5-10.1); CARBON DIOXIDE LEVEL 29 MEQ/L (21-32); CHLORIDE LEVEL 109 MEQ/L (98-107); CREATININE FOR GFR 0.79 MG/DL (0.70-1.30); FERRITIN 561 NG/ML (26-388); FREE T4 0.94 NG/DL (0.76-1.46); GAMMA GLUTAMYLTRANSPEPTIDASE 60 U/L (15-85); GLOMERULAR FILTRATION RATE > 60.0 (>60); GLUCOSE, FASTING 116 MG/DL (70-100); IRON (FE) 116 UG/DL (65-175); POTASSIUM SERUM 4.2 MEQ/L (3.5-5.1); SODIUM LEVEL 145 MEQ/L (136-145); TOTAL PROTEIN 6.8 GM/DL (6.4-8.2)
[2018-01-04 10:25] LABS: HEPATITIS B CORE ANTIBODY IGM NEGATIVE (NEGATIVE); HEPATITIS C VIRUS ABY INDEX 0.3 INDEX (<0.8)
[2018-01-04 10:27] LABS: HEPATITIS A ANTIBODY IGM NEGATIVE (NEGATIVE)
[2018-01-06 08:36] LABS: ALPHA 1 ANTITRYPSIN 146 mg/dL (90-200)
[2018-01-06 08:36] LABS: ANTI-MITOCHONDRIAL ANTIBODY 15.7 Units (0.0-20.0); ANTINUCLEAR ANTIBODIES DIRECT Negative (Negative); COPPER PLASMA 87 ug/dL (72-166); TISSUE TRANSGLUTAMINASE IgG <2 U/mL (0-5)
== END ==
LOC: M LAB 08:23
DX: R94.5 Abnormal results of liver function studies (principal); I10 Essential (primary) hypertension
CPT/HCPCS: 82977

== ENCOUNTER 2018-02-20 07:44 | Emergency (ER) | payer BC, MEDICAID ==
[2018-02-20] MEDS: CYCLOBENZAPRINE 10 MG TAB PO ×2 (08:35)
== END 2018-02-20 08:49 | disposition home or self-care (01) ==
LOC: M ED 07:44
DX: S29.002A Unspecified injury of muscle and tendon of back wall of thorax, initial encounter (principal); X58.XXXA Exposure to other specified factors, initial encounter; Y92.89 Other specified places as the place of occurrence of the external cause; F17.210 Nicotine dependence, cigarettes, uncomplicated
CPT/HCPCS: 99282

== ENCOUNTER 2018-07-19 00:19 | Emergency (ER) | payer BC, MEDICAID ==
[~2018-07-19] VITALS: Ht 175.3 cm; Wt 170.4 kg
[~2018-07-19 00:19] MED LIST changes: +CHAN1PAK13; -CHAN1PAK9; +CLEO300C2 PO
[2018-07-19] MEDS ORDERED: NS 1,000 ML IV ONE (01:15)
[2018-07-19 02:18] LABS: BASO % 0.5 % (0.0-1.0); EOS # 0.4 10^3/uL (0.0-0.50); EOS % 4.3 % (0.0-3.0); HEMATOCRIT 41.1 % (42.0-52.0); HEMOGLOBIN 14.2 g/dl (13.5-17.5); LYMPH # 3.7 10^3/uL (1.5-4.5); LYMPH % 44.6 % (24.0-44.0); MEAN CORPUSCULAR HEMOGLOBIN 32.9 pg (27.0-33.0); MEAN CORPUSCULAR HGB CONC 34.5 g/dl (32.0-36.5); MEAN CORPUSCULAR VOLUME 95.1 fl (80.0-96.0); MONO # 0.8 10^3/uL (0.0-0.8); MONO % 9.2 % (0.0-5.0); NEUTROPHILS # 3.5 10^3/uL (1.8-7.7); NEUTROPHILS % 41.2 % (36.0-66.0); PLATELET COUNT, AUTOMATED 169 10^3/uL (150-450); RED BLOOD COUNT 4.32 10^6/uL (4.30-6.10); WHITE BLOOD COUNT 8.4 10^3/uL (4.0-10.0)
--- NOTE | 2018-07-19 02:22 | REPVR ---
EXAM: CT Abdomen and Pelvis Without Contrast EXAM DATE/TIME: 07/19/2018 1:17 AM CLINICAL HISTORY: 38 years old, male; Pain; Abdominal pain; Prior surgery; Surgery date: 6+ months; Additional info: L colic TECHNIQUE: Axial computed tomography images of the abdomen and pelvis without contrast. All CT scans at this facility use at least one of these dose optimization techniques: automated exposure control; mA and/or kV adjustment per patient size (includes targeted exams where dose is matched to clinical indication); or iterative reconstruction. Coronal and sagittal reformatted images were created and reviewed. COMPARISON: LIVER US 03/13/2017 8:31 AM Study limitations: Evaluation for mass, inflammatory change, including bowel wall/fold thickening, viscera, and vasculature, is suboptimal without contrast. FINDINGS: LUNG BASES: Mild right infrahilar and bibasal atelectasis. VASCULAR: Mild to moderate cardiac enlargement. No abdominal aortic aneurysm or retroperitoneal hematoma. PERITONEAL : No free air or free fluid. GI: No hiatal hernia. The stomach is mildly distended with ingested material and gas. No appearance of bowel obstruction. There is no focal mesenteric inflammatory stranding. No mesenteric lymphadenopathy by size criteria. Scattered fecal material and gas within portions of the colon and rectum. No pericolonic inflammatory stranding. No evidence of acute diverticulitis. The appendix does not appear inflamed. HEPATOBILIARY, PANCREAS, SPLEEN: Sagittal hepatic length is 20.6 cm. Hepatic attenuation is consistent with fatty infiltration. Partially contracted gallbladder. No calcified gallstones. Splenic diameter is 16.9 cm. No pancreatic inflammation. ADRENALS, KIDNEYS, BLADDER, RETROPERITONEAL: Adrenals within normal limits. No hydronephrosis. Mild nonspecific perinephric stranding. No renal calculi. No ureteral calculi. No calculi within the urinary bladder. No perivesical stranding. No bladder wall thickening. MUSCULOSKELETAL: Tiny fat containing umbilical hernia. Nonspecific skin thickening at the umbilicus. Prominent fat within the right inguinal canal. Degenerative changes of the spine most pronounced at the T11/T12 level with a partially calcified posterior paracentral right disc displacement. IMPRESSION: No hydronephrosis or genitourinary calculi. No free air, free fluid or focal mesenteric inflammation. Nonspecific gastrointestinal findings. Cardiac enlargement. Hepatosplenomegaly. Other incidental findings discussed above. Electronically signed by: Ramon Evans On 07/19/2018 02:22:08 AM
[2018-07-19 02:25] LABS: APPEARANCE, URINE CLEAR (CLEAR); BACTERIA, URINE AUTO NEGATIVE (NEGATIVE); BILIRUBIN, URINE AUTO NEGATIVE (NEGATIVE); BLOOD, URINE BLOOD NEGATIVE (NEGATIVE); COLOR, URINE YELLOW (YELLOW); GLUCOSE, URINE (UA) AUTO NEGATIVE (NEGATIVE); KETONE, URINE AUTO NEGATIVE (NEGATIVE); LEUKOCYTE ESTERASE, URINE AUTO 1+ (NEGATIVE); MUCUS, URINE SMALL (NEGATIVE); NITRITE, URINE AUTO NEGATIVE (NEGATIVE); PROTEIN, URINE AUTO NEGATIVE (NEGATIVE); RBC, URINE AUTO 5 /HPF (0-3); SQUAMOUS EPITHELIAL CELL UR AU 2 /HPF (0-6); WBC, URINE AUTO 22 /HPF (0-3)
[2018-07-19 02:35] LABS: ALBUMIN 3.7 GM/DL (3.2-5.2); ALT/SGPT 69 U/L (12-78); BILIRUBIN,DIRECT < 0.1 MG/DL (0.0-0.2); BILIRUBIN,TOTAL 0.2 MG/DL (0.2-1.0); BLOOD UREA NITROGEN 13 MG/DL (7-18); CALCIUM LEVEL 8.3 MG/DL (8.5-10.1); CARBON DIOXIDE LEVEL 27 MEQ/L (21-32); CHLORIDE LEVEL 106 MEQ/L (98-107); CREATININE FOR GFR 0.73 MG/DL (0.70-1.30); GLOMERULAR FILTRATION RATE > 60.0 (>60); GLUCOSE, FASTING 145 MG/DL (70-100); LIPASE 189 U/L (73-393); POTASSIUM SERUM 3.8 MEQ/L (3.5-5.1); SODIUM LEVEL 139 MEQ/L (136-145); TOTAL PROTEIN 6.6 GM/DL (6.4-8.2)
[2018-07-19 03:43] VITALS: BP 162/101
--- NOTE | 2018-07-20 11:41 | ED PDOC ---
Post-Departure Follow-Up dr pacheco faxed formal report of ct abd/pfor fu Aleshia Domingo MD Jul 20, 2018 11:41
== END 2018-07-19 03:45 | disposition home or self-care (01) ==
LOC: M ED 00:19
DX: S39.011A Strain of muscle, fascia and tendon of abdomen, initial encounter (principal); X50.1XXA Overexertion from prolonged static or awkward postures, initial encounter; Y92.098 Other place in other non-institutional residence as the place of occurrence of the external cause; E66.01 Morbid (severe) obesity due to excess calories

== ENCOUNTER → 2018-09-03 | Outpatient (CLI) | payer MEDICAID ==
[2018-09-03 12:12] LABS: BASO # 0.1 10^3/uL (0.0-0.2); BASO % 0.8 % (0.0-1.0); EOS # 0.3 10^3/uL (0.0-0.50); EOS % 3.8 % (0.0-3.0); HEMATOCRIT 45.3 % (42.0-52.0); HEMOGLOBIN 15.7 g/dl (13.5-17.5); LYMPH # 2.6 10^3/uL (1.5-4.5); LYMPH % 33.5 % (24.0-44.0); MEAN CORPUSCULAR HEMOGLOBIN 32.8 pg (27.0-33.0); MEAN CORPUSCULAR HGB CONC 34.7 g/dl (32.0-36.5); MEAN CORPUSCULAR VOLUME 94.6 fl (80.0-96.0); MONO # 0.6 10^3/uL (0.0-0.8); MONO % 7.5 % (0.0-5.0); NEUTROPHILS # 4.2 10^3/uL (1.8-7.7); PLATELET COUNT, AUTOMATED 177 10^3/uL (150-450); RED BLOOD COUNT 4.79 10^6/uL (4.30-6.10); WHITE BLOOD COUNT 7.7 10^3/uL (4.0-10.0)
[2018-09-03 12:24] LABS: INR 0.93; PROTHROMBIN TIME 12.6 SECONDS (12.1-14.4)
[2018-09-03 12:25] LABS: PARTIAL THROMBOPLASTIN TIME 28.7 SECONDS (25.4-37.6)
[2018-09-03 12:50] LABS: ALBUMIN 4.1 GM/DL (3.2-5.2); ALT/SGPT 58 U/L (12-78); BILIRUBIN,DIRECT 0.1 MG/DL (0.0-0.2); BILIRUBIN,TOTAL 0.4 MG/DL (0.2-1.0); BLOOD UREA NITROGEN 10 MG/DL (7-18); CREATININE FOR GFR 0.79 MG/DL (0.70-1.30); FERRITIN 489 NG/ML (26-388); GLOMERULAR FILTRATION RATE > 60.0 (>60); IRON (FE) 102 UG/DL (65-175); PERCENT SATURATION 38.3 % (19.7-50.0); TOTAL IRON BINDING CAPACITY 266 UG/DL (250-450); TOTAL PROTEIN 6.9 GM/DL (6.4-8.2)
== END ==
LOC: M LAB 11:13
PROVIDERS: ATTEND Internal Medicine Gastroenterology
DX: E83.110 Hereditary hemochromatosis (principal); R94.5 Abnormal results of liver function studies

== ENCOUNTER → 2018-11-18 | Outpatient (CLI) | payer OTHER ==
[~2018-11-18] MED LIST changes: +HYDR-3715 PO; -NORCOTAB PO
--- NOTE | 2018-11-18 14:00 | REP ---
CT IACS WITHOUT CONTRAST: HISTORY: Bilateral conductive hearing loss. The right internal auditory canal, cochlea, vestibule and semicircular canals are normal in appearance. There is no carotid canal or jugular bulb dehiscence. The ossicles are normal in configuration and position. The scutum and tegmen are intact. There is almost complete opacification of the right middle ear cavity. There is complete opacification of the right mastoid air cells. There is retraction of the right tympanic membrane. There is no bone erosion. The left internal auditory canal, cochlea, vestibule and semicircular canals are normal in appearance. There is no carotid canal or jugular bulb dehiscence. The ossicles are normal in configuration and position. The scutum and tegmen are intact. There is complete opacification of the left middle ear cavity and mastoid air cells. There is retraction of the left tympanic membrane. There is no bone erosion. Minimal mucosal thickening is present in the right maxillary sinus. A retention cyst is present in the left maxillary sinus. The nasopharynx is normal in appearance. IMPRESSION: There is complete opacification of the mastoid air cells and left middle ear cavity. There is almost complete opacification of the right middle ear cavity. There is no bone erosion. This may represent otitis, however , cholesteatomas cannot be excluded. Electronically Signed by Fernando Quinn MD 11/18/2018 02:03 P
== END ==
LOC: M RAD 12:37
PROVIDERS: ATTEND Specialist
DX: H90.0 Conductive hearing loss, bilateral (principal)

== ENCOUNTER 2018-12-27 11:19 | Day surgery (SDC) | payer OTHER ==
[~2018-12-27] VITALS: Ht 172.7 cm; Wt 163.8 kg
[~2018-12-27 11:19] MED LIST changes: +LR 1,000 ML IV ONE
[2018-12-27] MEDS ORDERED: CIPRODEX OTIC SUSP 7.5ML As Ordered ONE (11:56)
[2018-12-27] MEDS ORDERED: PROPOFOL 200 MG/20 ML VIAL As Ordered ONE (12:20)
[2018-12-27] MEDS ORDERED: MIDAZOLAM INJ 2 MG/2 ML VIAL (J2250) As Ordered ONE (12:20)
[2018-12-27] MEDS ORDERED: fentaNYL 100 MCG/2 ML INJECTION (J3010) As Ordered ONE (12:20)
[2018-12-27] MEDS ORDERED: LIDOCAINE 2% INJ 100 MG/5 ML SDV (FOR ANES.) As Ordered ONE (12:20)
[2018-12-27] MEDS ORDERED: dexameTHASONE 4 MG/ML 1ML VIAL (J1100) As Ordered ONE (12:24)
[2018-12-27] MEDS ORDERED: ONDANSETRON 4MG/2ML VIAL (J2405) As Ordered ONE (12:24)
[2018-12-27] MEDS ORDERED: PERCOCET 5MG/325MG TAB PO PRN (13:45)
[2018-12-27] MEDS ORDERED: ONDANSETRON 4MG/2ML VIAL (J2405) IV PRN (13:45)
[2018-12-27] MEDS ORDERED: IBUPROFEN 800 MG TAB PO PRN (13:45)
[2018-12-27] MEDS ORDERED: fentaNYL 100 MCG/2 ML INJECTION (J3010) IV PRN (13:45)
[2018-12-27] MEDS ORDERED: LR 1,000 ML IV SCH (13:45)
[2018-12-27 14:14] VITALS: BP 137/73
== END 2018-12-27 14:35 | disposition home or self-care (01) ==
LOC: M SDC 11:19
PROVIDERS: ATTEND Specialist
DX: H65.23 Chronic serous otitis media, bilateral (principal); F17.210 Nicotine dependence, cigarettes, uncomplicated
CPT/HCPCS: 69436; J1100; J2250; J2405; J3010

== ENCOUNTER 2019-01-06 20:52 | Emergency (ER) | payer OTHER ==
[~2019-01-06] VITALS: Ht 175.3 cm; Wt 167.3 kg
[~2019-01-06 20:52] MED LIST changes: -LR 1,000 ML IV ONE
[2019-01-06] MEDS ORDERED: IBUP80TA PO (22:34)
[2019-01-06] MEDS ORDERED: AUGM875T28 PO (22:34)
[2019-01-06] MEDS ORDERED: IBUPROFEN 800 MG TAB PO ONE (22:45)
[2019-01-06 22:50] VITALS: BP 168/94
== END 2019-01-06 22:53 | disposition home or self-care (01) ==
LOC: M ED 20:52
DX: K02.9 Dental caries, unspecified (principal); K05.10 Chronic gingivitis, plaque induced; S02.5XXA Fracture of tooth (traumatic), initial encounter for closed fracture; X58.XXXA Exposure to other specified factors, initial encounter; Y92.89 Other specified places as the place of occurrence of the external cause

== ENCOUNTER → 2019-02-11 | Outpatient (CLI) | payer OTHER ==
[~2019-02-11] MED LIST changes: +AUGM875T28 PO; +IBUP80TA PO
[2019-02-11 09:06] LABS: APPEARANCE, URINE CLEAR (CLEAR); BACTERIA, URINE AUTO NEGATIVE (NEGATIVE); BILIRUBIN, URINE AUTO NEGATIVE (NEGATIVE); BLOOD, URINE BLOOD NEGATIVE (NEGATIVE); COLOR, URINE YELLOW (YELLOW); GLUCOSE, URINE (UA) AUTO NEGATIVE (NEGATIVE); KETONE, URINE AUTO NEGATIVE (NEGATIVE); LEUKOCYTE ESTERASE, URINE AUTO NEGATIVE (NEGATIVE); MUCUS, URINE SMALL (NEGATIVE); NITRITE, URINE AUTO NEGATIVE (NEGATIVE); PROTEIN, URINE AUTO NEGATIVE (NEGATIVE); RBC, URINE AUTO 4 /HPF (0-3); SPECIFIC GRAVITY URINE AUTO 1.019 (1.002-1.035); SQUAMOUS EPITHELIAL CELL UR AU 1 /HPF (0-6); UROBILINOGEN, URINE AUTO 0.2 mg/dL (0.0-2.0); WBC, URINE AUTO 2 /HPF (0-3)
[2019-02-11 09:10] LABS: HEMATOCRIT 45.1 % (42.0-52.0); HEMOGLOBIN 15.6 g/dl (13.5-17.5); MEAN CORPUSCULAR HEMOGLOBIN 33.6 pg (27.0-33.0); MEAN CORPUSCULAR HGB CONC 34.6 g/dl (32.0-36.5); MEAN CORPUSCULAR VOLUME 97.2 fl (80.0-96.0); PLATELET COUNT, AUTOMATED 184 10^3/uL (150-450); RED BLOOD COUNT 4.64 10^6/uL (4.30-6.10); WHITE BLOOD COUNT 8.2 10^3/uL (4.0-10.0)
[2019-02-11 09:45] LABS: ALBUMIN 3.7 GM/DL (3.2-5.2); ALT/SGPT 53 U/L (12-78); BILIRUBIN,TOTAL 0.3 MG/DL (0.2-1.0); BLOOD UREA NITROGEN 13 MG/DL (7-18); CALCIUM LEVEL 8.8 MG/DL (8.5-10.1); CARBON DIOXIDE LEVEL 28 MEQ/L (21-32); CHLORIDE LEVEL 106 MEQ/L (98-107); CHOLESTEROL LEVEL 233 MG/DL (<200); CHOLESTEROL RISK RATIO 5.295 (<5); CREATININE FOR GFR 0.87 MG/DL (0.70-1.30); FREE T4 0.89 NG/DL (0.76-1.46); GLOMERULAR FILTRATION RATE > 60.0 (>60); GLUCOSE, FASTING 139 MG/DL (70-100); HDL CHOLESTEROL 44 MG/DL (>40); LDL CHOLESTEROL 162 MG/DL (<100); NON-HDL-C 189 MG/DL; POTASSIUM SERUM 4.2 MEQ/L (3.5-5.1); SODIUM LEVEL 139 MEQ/L (136-145); TOTAL PROTEIN 6.5 GM/DL (6.4-8.2); TRIGLYCERIDES LEVEL 136 MG/DL (<150)
[2019-02-11 10:29] LABS: HEMOGLOBIN A1c 6.5 %
== END ==
LOC: M LAB 08:00
PROVIDERS: ATTEND Family Medicine
DX: R73.9 Hyperglycemia, unspecified (principal)

== ENCOUNTER 2019-02-18 22:04 | Emergency (ER) | payer OTHER ==
[~2019-02-18] VITALS: Ht 175.3 cm; Wt 166.8 kg
[2019-02-18 23:10] VITALS: BP 172/70
[2019-02-19] MEDS ORDERED: CLEO300C2 PO (02:12)
[2019-02-19] MEDS ORDERED: KETOROLAC 60 MG/2 ML VIAL (J1885) IM ONE (02:15)
[2019-02-19] MEDS ORDERED: CLINDAMYCIN 150 MG CAP PO ONE (02:15)
== END 2019-02-19 02:44 | disposition home or self-care (01) ==
LOC: M ED 22:04
DX: K04.7 Periapical abscess without sinus (principal)
CPT/HCPCS: 96372; 99283; J1885

== ENCOUNTER 2019-04-25 07:39 | Emergency (ER) | payer OTHER ==
[~2019-04-25] VITALS: Ht 175.3 cm; Wt 165.9 kg
[2019-04-25] MEDS ORDERED: TIZA2TA (07:47)
[2019-04-25] MEDS ORDERED: METF500T13 (07:47)
[2019-04-25] MEDS ORDERED: ATOR1TAB21 (07:47)
--- NOTE | 2019-04-25 08:35 | REP ---
Right foot series: Four views. History: Heel pain. Findings: Four views of the right foot demonstrate Achilles calcaneal spurring and plantar calcaneal spurring. No erosive changes are seen. No fracture is seen. There is minimal spurring at the first MTP joint. Impression: Fairly large heel spurs. No erosions seen. Mild first MTP joint osteoarthritis. No acute abnormality. Electronically Signed by Armando Mahoney MD 04/25/2019 08:26 A
[2019-04-25 09:14] VITALS: BP 151/73
== END 2019-04-25 09:15 | disposition home or self-care (01) ==
LOC: M ED 07:39
DX: M19.071 Primary osteoarthritis, right ankle and foot (principal); M77.31 Calcaneal spur, right foot; E11.9 Type 2 diabetes mellitus without complications; E78.5 Hyperlipidemia, unspecified; G89.29 Other chronic pain; M54.5 Low back pain; Z79.84 Long term (current) use of oral hypoglycemic drugs; F17.210 Nicotine dependence, cigarettes, uncomplicated

== ENCOUNTER → 2019-04-28 | Outpatient (CLI) | payer OTHER ==
[~2019-04-28] MED LIST changes: +ATOR1TAB21; +METF500T13; +TIZA2TA
--- NOTE | 2019-04-28 16:50 | REP ---
Two-view chest: 04/28/2019. Indication: Preoperative assessment. Comparison: None. Findings: The lungs are clear. There is no pleural effusion or pneumothorax. Cardiac silhouette is mildly enlarged. Impression: No acute cardiopulmonary process. Electronically Signed by Soto Allen DO 04/28/2019 04:41 P
[2019-04-28 17:17] LABS: BASO # 0.1 10^3/uL (0.0-0.2); BASO % 0.8 % (0.0-1.0); EOS # 0.3 10^3/uL (0.0-0.5); EOS % 3.8 % (0.0-3.0); HEMATOCRIT 46.1 % (42.0-52.0); HEMOGLOBIN 15.3 g/dl (13.5-17.5); LYMPH # 2.8 10^3/uL (1.5-5.0); LYMPH % 36.5 % (24.0-44.0); MEAN CORPUSCULAR HEMOGLOBIN 32.4 pg (27.0-33.0); MEAN CORPUSCULAR HGB CONC 33.2 g/dl (32.0-36.5); MEAN CORPUSCULAR VOLUME 97.7 fl (80.0-96.0); MONO # 0.5 10^3/uL (0.0-0.8); MONO % 6.1 % (0.0-5.0); NEUTROPHILS % 52.4 % (36.0-66.0); PLATELET COUNT, AUTOMATED 202 10^3/uL (150-450); RED BLOOD COUNT 4.72 10^6/uL (4.30-6.10); WHITE BLOOD COUNT 7.6 10^3/uL (4.0-10.0)
[2019-04-28 17:22] LABS: INR 1.01
[2019-04-28 17:25] LABS: HEMOGLOBIN A1c 6.6 %
[2019-04-28 17:33] LABS: ALBUMIN 4.2 GM/DL (3.2-5.2); ALT/SGPT 53 U/L (12-78); BILIRUBIN,TOTAL 0.2 MG/DL (0.2-1.0); BLOOD UREA NITROGEN 11 MG/DL (7-18); CALCIUM LEVEL 9.7 MG/DL (8.5-10.1); CARBON DIOXIDE LEVEL 29 MEQ/L (21-32); CHLORIDE LEVEL 107 MEQ/L (98-107); CREATININE FOR GFR 0.88 MG/DL (0.70-1.30); GLOMERULAR FILTRATION RATE > 60.0 (>60); GLUCOSE, FASTING 97 MG/DL (70-100); POTASSIUM SERUM 4.3 MEQ/L (3.5-5.1); SODIUM LEVEL 141 MEQ/L (136-145); TOTAL PROTEIN 7.2 GM/DL (6.4-8.2)
== END ==
LOC: M RAD 15:52
PROVIDERS: ATTEND Family Medicine
DX: Z01.818 Encounter for other preprocedural examination (principal)

== ENCOUNTER 2019-05-13 07:26 | Emergency (ER) | payer OTHER ==
[~2019-05-13] VITALS: Ht 175.3 cm; Wt 166.2 kg
[2019-05-13] MEDS ORDERED: FLUT15.820 NARES (09:21)
[2019-05-13] MEDS ORDERED: PSEU120T19 PO (09:21)
[2019-05-13 09:27] VITALS: BP 124/60
== END 2019-05-13 09:33 | disposition home or self-care (01) ==
LOC: M ED 07:26
DX: J01.90 Acute sinusitis, unspecified (principal); J02.9 Acute pharyngitis, unspecified; F17.200 Nicotine dependence, unspecified, uncomplicated; Z20.828 Contact with and (suspected) exposure to other viral communicable diseases; Z79.84 Long term (current) use of oral hypoglycemic drugs

== ENCOUNTER 2019-05-24 08:17 | Emergency (ER) | payer OTHER ==
[~2019-05-24] VITALS: Ht 175.3 cm; Wt 163.6 kg
[~2019-05-24 08:17] MED LIST changes: +FLUT15.820 NARES; +PSEU120T19 PO
[2019-05-24 09:01] LABS: BASO # 0.1 10^3/uL (0.0-0.2); BASO % 0.6 % (0.0-1.0); EOS # 0.3 10^3/uL (0.0-0.5); EOS % 3.9 % (0.0-3.0); HEMATOCRIT 47.4 % (42.0-52.0); HEMOGLOBIN 15.9 g/dl (13.5-17.5); LYMPH # 3.1 10^3/uL (1.5-5.0); LYMPH % 37.3 % (24.0-44.0); MEAN CORPUSCULAR HEMOGLOBIN 32.4 pg (27.0-33.0); MEAN CORPUSCULAR HGB CONC 33.5 g/dl (32.0-36.5); MEAN CORPUSCULAR VOLUME 96.7 fl (80.0-96.0); MONO # 0.6 10^3/uL (0.0-0.8); MONO % 7.1 % (0.0-5.0); NEUTROPHILS # 4.3 10^3/uL (1.5-8.5); NEUTROPHILS % 50.9 % (36.0-66.0); PLATELET COUNT, AUTOMATED 228 10^3/uL (150-450); WHITE BLOOD COUNT 8.4 10^3/uL (4.0-10.0)
--- NOTE | 2019-05-24 09:01 | REP ---
CHEST, TWO VIEWS: There is no evidence of acute infiltrate. No pleural effusion is seen. The heart is normal in size. The mediastinal silhouette is unremarkable. The visualized osseous structures are intact. IMPRESSION: No acute pulmonary disease. Electronically Signed by Richard Birch MD 05/24/2019 04:00 P
[2019-05-24 09:27] LABS: BLOOD UREA NITROGEN 11 MG/DL (7-18); CALCIUM LEVEL 8.7 MG/DL (8.5-10.1); CARBON DIOXIDE LEVEL 27 MEQ/L (21-32); CHLORIDE LEVEL 108 MEQ/L (98-107); CREATININE FOR GFR 0.74 MG/DL (0.70-1.30); GLOMERULAR FILTRATION RATE > 60.0 (>60); GLUCOSE, FASTING 150 MG/DL (70-100); POTASSIUM SERUM 4.2 MEQ/L (3.5-5.1); SODIUM LEVEL 140 MEQ/L (136-145)
[2019-05-24] MEDS ORDERED: BENZ200C70 PO (09:34)
[2019-05-24 10:14] VITALS: BP 150/82
--- NOTE | 2019-05-25 07:59 | ECGEPIP ---
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
== END 2019-05-24 10:15 | disposition home or self-care (01) ==
LOC: M ED 08:17
DX: R05 Cough (principal); Z79.899 Other long term (current) drug therapy; F17.210 Nicotine dependence, cigarettes, uncomplicated

== ENCOUNTER 2019-07-03 08:39 | Emergency (ER) | payer OTHER ==
[~2019-07-03] VITALS: Ht 175.3 cm; Wt 169.2 kg
[~2019-07-03 08:39] MED LIST changes: +BENZ200C70 PO
[2019-07-03] MEDS ORDERED: NAPR-885 (08:46)
[2019-07-03] MEDS ORDERED: ACETAMINOPHEN 325 MG TAB PO ONE (09:45)
[2019-07-03] MEDS ORDERED: KETOROLAC 60 MG/2 ML VIAL (J1885) IM ONE (09:45)
[2019-07-03] MEDS ORDERED: KETO10TAB PO (10:59)
[2019-07-03 11:21] VITALS: BP 132/60
== END 2019-07-03 11:21 | disposition home or self-care (01) ==
LOC: M ED 08:39
DX: M54.42 Lumbago with sciatica, left side (principal); F17.200 Nicotine dependence, unspecified, uncomplicated; Z79.84 Long term (current) use of oral hypoglycemic drugs; Z79.899 Other long term (current) drug therapy
CPT/HCPCS: 96372; 99283; J1885

== ENCOUNTER 2019-07-23 07:59 | Emergency (ER) | payer OTHER ==
[~2019-07-23] VITALS: Ht 175.3 cm; Wt 169.0 kg
[~2019-07-23 07:59] MED LIST changes: +KETO10TAB PO; +NAPR-885
[2019-07-23] MEDS ORDERED: KETOROLAC 60 MG/2 ML VIAL (J1885) IM ONE (08:30)
[2019-07-23] MEDS ORDERED: LIDOCAINE 5% (LIDODERM) PATCH TD ONE (08:30)
--- NOTE | 2019-07-23 08:43 | REP ---
Clinical: Trauma. Technique: Four views of the right hemithorax. Findings: Multiple views of the right hemithorax demonstrates no obvious acute rib fracture or pathology. Impression: Normal right rib series. No obvious acute or displaced rib fracture identified. Electronically Signed by Derek Mendoza MD 07/23/2019 08:34 A
[2019-07-23 09:08] VITALS: BP 140/81
[2019-07-23] MEDS ORDERED: **NOTE PATIENT COMMENT** MISC XX SCH (21:00)
== END 2019-07-23 09:10 | disposition home or self-care (01) ==
LOC: M ED 07:59
DX: S20.221A Contusion of right back wall of thorax, initial encounter (principal); W22.8XXA Striking against or struck by other objects, initial encounter; Y92.018 Other place in single-family (private) house as the place of occurrence of the external cause; E11.9 Type 2 diabetes mellitus without complications; E78.5 Hyperlipidemia, unspecified; K76.0 Fatty (change of) liver, not elsewhere classified; Z79.899 Other long term (current) drug therapy; Z79.84 Long term (current) use of oral hypoglycemic drugs; F17.210 Nicotine dependence, cigarettes, uncomplicated
CPT/HCPCS: 71100; 81001; 96372; 99283; J1885

== ENCOUNTER → 2019-09-22 | Outpatient (CLI) | payer OTHER ==
[2019-09-22 08:49] LABS: APPEARANCE, URINE CLEAR (CLEAR); BACTERIA, URINE AUTO NEGATIVE (NEGATIVE); BILIRUBIN, URINE AUTO NEGATIVE (NEGATIVE); BLOOD, URINE BLOOD NEGATIVE (NEGATIVE); COLOR, URINE YELLOW (YELLOW); GLUCOSE, URINE (UA) AUTO 1+ mg/dL (NEGATIVE); KETONE, URINE AUTO NEGATIVE (NEGATIVE); LEUKOCYTE ESTERASE, URINE AUTO NEGATIVE (NEGATIVE); MUCUS, URINE SMALL (NEGATIVE); NITRITE, URINE AUTO NEGATIVE (NEGATIVE); PROTEIN, URINE AUTO NEGATIVE (NEGATIVE); RBC, URINE AUTO 1 /HPF (0-3); SPECIFIC GRAVITY URINE AUTO 1.018 (1.002-1.035); SQUAMOUS EPITHELIAL CELL UR AU 1 /HPF (0-6); UROBILINOGEN, URINE AUTO 0.2 mg/dL (0.0-2.0); WBC, URINE AUTO 2 /HPF (0-3)
[2019-09-22 08:51] LABS: BASO # 0.1 10^3/uL (0.0-0.2); BASO % 0.8 % (0.0-1.0); EOS # 0.3 10^3/uL (0.0-0.5); EOS % 4.2 % (0.0-3.0); HEMATOCRIT 44.2 % (42.0-52.0); LYMPH # 2.5 10^3/uL (1.5-5.0); MEAN CORPUSCULAR HEMOGLOBIN 32.7 pg (27.0-33.0); MEAN CORPUSCULAR HGB CONC 33.9 g/dl (32.0-36.5); MEAN CORPUSCULAR VOLUME 96.3 fl (80.0-96.0); MONO # 0.6 10^3/uL (0.0-0.8); MONO % 7.8 % (0.0-5.0); NEUTROPHILS # 4.4 10^3/uL (1.5-8.5); NEUTROPHILS % 54.9 % (36.0-66.0); PLATELET COUNT, AUTOMATED 179 10^3/uL (150-450); RED BLOOD COUNT 4.59 10^6/uL (4.30-6.10); WHITE BLOOD COUNT 7.9 10^3/uL (4.0-10.0)
[2019-09-22 09:13] LABS: ALBUMIN 3.9 GM/DL (3.2-5.2); ALT/SGPT 43 U/L (12-78); BILIRUBIN,TOTAL 0.5 MG/DL (0.2-1.0); BLOOD UREA NITROGEN 15 MG/DL (7-18); CALCIUM LEVEL 8.6 MG/DL (8.5-10.1); CARBON DIOXIDE LEVEL 28 MEQ/L (21-32); CHLORIDE LEVEL 107 MEQ/L (98-107); CHOLESTEROL LEVEL 173 MG/DL (<200); CHOLESTEROL RISK RATIO 3.844 (<5); CREATININE FOR GFR 0.86 MG/DL (0.70-1.30); GLOMERULAR FILTRATION RATE > 60.0 (>60); GLUCOSE, FASTING 138 MG/DL (70-100); HDL CHOLESTEROL 45 MG/DL (>40); LDL CHOLESTEROL 108 MG/DL (<100); NON-HDL-C 128 MG/DL; POTASSIUM SERUM 4.4 MEQ/L (3.5-5.1); SODIUM LEVEL 140 MEQ/L (136-145); TOTAL PROTEIN 6.8 GM/DL (6.4-8.2); TRIGLYCERIDES LEVEL 101 MG/DL (<150)
== END ==
LOC: M LAB 07:44
PROVIDERS: ATTEND Family Medicine
DX: E11.9 Type 2 diabetes mellitus without complications (principal); E78.5 Hyperlipidemia, unspecified; E66.01 Morbid (severe) obesity due to excess calories

== ENCOUNTER → 2020-01-12 | Outpatient (CLI) | payer OTHER ==
[2020-02-17 13:30] LABS: APPEARANCE, URINE CLEAR (CLEAR); BACTERIA, URINE AUTO NEGATIVE (NEGATIVE); BILIRUBIN, URINE AUTO NEGATIVE (NEGATIVE); BLOOD, URINE BLOOD NEGATIVE (NEGATIVE); CALCIUM OXALATE CRYSTALS SMALL; COLOR, URINE YELLOW (YELLOW); GLUCOSE, URINE (UA) AUTO 3+ mg/dL (NEGATIVE); KETONE, URINE AUTO NEGATIVE (NEGATIVE); LEUKOCYTE ESTERASE, URINE AUTO NEGATIVE (NEGATIVE); MUCUS, URINE SMALL (NEGATIVE); NITRITE, URINE AUTO NEGATIVE (NEGATIVE); PROTEIN, URINE AUTO NEGATIVE (NEGATIVE); RBC, URINE AUTO 2 /HPF (0-3); SPECIFIC GRAVITY URINE AUTO 1.021 (1.002-1.035); SQUAMOUS EPITHELIAL CELL UR AU 1 /HPF (0-6); WBC, URINE AUTO 2 /HPF (0-3)
[2020-02-17 16:08] LABS: BASO # 0.1 10^3/uL (0.0-0.2); BASO % 0.7 % (0.0-1.0); EOS # 0.4 10^3/uL (0.0-0.5); EOS % 4.1 % (0.0-3.0); HEMATOCRIT 44.2 % (42.0-52.0); HEMOGLOBIN 15.1 g/dl (13.5-17.5); LYMPH # 2.5 10^3/uL (1.5-5.0); LYMPH % 29.6 % (24.0-44.0); MEAN CORPUSCULAR HGB CONC 34.2 g/dl (32.0-36.5); MEAN CORPUSCULAR VOLUME 96.5 fl (80.0-96.0); MONO # 0.7 10^3/uL (0.0-0.8); MONO % 7.7 % (0.0-5.0); NEUTROPHILS # 4.9 10^3/uL (1.5-8.5); NEUTROPHILS % 57.7 % (36.0-66.0); PLATELET COUNT, AUTOMATED 199 10^3/uL (150-450); RED BLOOD COUNT 4.58 10^6/uL (4.30-6.10); WHITE BLOOD COUNT 8.5 10^3/uL (4.0-10.0)
[2020-02-26 16:28] LABS: ALBUMIN 3.9 GM/DL (3.2-5.2); ALT/SGPT 52 U/L (12-78); BILIRUBIN,TOTAL 0.3 MG/DL (0.2-1.0); BLOOD UREA NITROGEN 10 MG/DL (7-18); CALCIUM LEVEL 9.1 MG/DL (8.5-10.1); CARBON DIOXIDE LEVEL 32 MEQ/L (21-32); CHLORIDE LEVEL 105 MEQ/L (98-107); CHOLESTEROL LEVEL 163 MG/DL (<200); CHOLESTEROL RISK RATIO 4.179 (<5); GLOMERULAR FILTRATION RATE > 60.0 (>60); GLUCOSE, FASTING 147 MG/DL (70-100); HDL CHOLESTEROL 39 MG/DL (>40); HEMOGLOBIN A1c 6.5 %; LDL CHOLESTEROL 90 MG/DL (<100); MALB URINE SIEMENS 24.8 MG/L; NON-HDL-C 124 MG/DL; POTASSIUM SERUM 4.4 MEQ/L (3.5-5.1); SODIUM LEVEL 140 MEQ/L (136-145); TOTAL PROTEIN 6.9 GM/DL (6.4-8.2); TRIGLYCERIDES LEVEL 168 MG/DL (<150)
== END ==
LOC: M LAB 08:02
PROVIDERS: ATTEND Internal Medicine
DX: E11.8 Type 2 diabetes mellitus with unspecified complications (principal)

== ENCOUNTER → 2020-04-24 | Outpatient (CLI) | payer OTHER ==
[2020-04-24 09:19] LABS: BASO # 0.1 10^3/uL (0.0-0.2); BASO % 0.6 % (0.0-1.0); EOS # 0.3 10^3/uL (0.0-0.5); EOS % 3.2 % (0.0-3.0); HEMATOCRIT 44.9 % (42.0-52.0); HEMOGLOBIN 15.1 g/dl (13.5-17.5); LYMPH # 2.4 10^3/uL (1.5-5.0); LYMPH % 27.3 % (24.0-44.0); MEAN CORPUSCULAR HEMOGLOBIN 32.5 pg (27.0-33.0); MEAN CORPUSCULAR HGB CONC 33.6 g/dl (32.0-36.5); MEAN CORPUSCULAR VOLUME 96.6 fl (80.0-96.0); MONO # 0.6 10^3/uL (0.0-0.8); MONO % 7.3 % (0.0-5.0); NEUTROPHILS # 5.3 10^3/uL (1.5-8.5); NEUTROPHILS % 61.3 % (36.0-66.0); PLATELET COUNT, AUTOMATED 188 10^3/uL (150-450); RED BLOOD COUNT 4.65 10^6/uL (4.30-6.10); WHITE BLOOD COUNT 8.6 10^3/uL (4.0-10.0)
[2020-04-24 09:25] LABS: APPEARANCE, URINE CLEAR (CLEAR); BACTERIA, URINE AUTO NEGATIVE (NEGATIVE); BILIRUBIN, URINE AUTO NEGATIVE (NEGATIVE); BLOOD, URINE BLOOD NEGATIVE (NEGATIVE); COLOR, URINE YELLOW (YELLOW); GLUCOSE, URINE (UA) AUTO NEGATIVE (NEGATIVE); KETONE, URINE AUTO NEGATIVE (NEGATIVE); LEUKOCYTE ESTERASE, URINE AUTO NEGATIVE (NEGATIVE); MUCUS, URINE SMALL (NEGATIVE); NITRITE, URINE AUTO NEGATIVE (NEGATIVE); PROTEIN, URINE AUTO NEGATIVE (NEGATIVE); RBC, URINE AUTO 1 /HPF (0-3); SPECIFIC GRAVITY URINE AUTO 1.015 (1.002-1.035); SQUAMOUS EPITHELIAL CELL UR AU 1 /HPF (0-6); UROBILINOGEN, URINE AUTO 0.2 mg/dL (0.0-2.0); WBC, URINE AUTO 5 /HPF (0-3)
[2020-04-24 10:02] LABS: ALBUMIN 3.9 GM/DL (3.2-5.2); ALT/SGPT 45 U/L (12-78); BILIRUBIN,TOTAL 0.5 MG/DL (0.2-1.0); BLOOD UREA NITROGEN 10 MG/DL (7-18); CALCIUM LEVEL 8.8 MG/DL (8.5-10.1); CARBON DIOXIDE LEVEL 30 MEQ/L (21-32); CHLORIDE LEVEL 105 MEQ/L (98-107); CHOLESTEROL LEVEL 156 MG/DL (<200); CREATININE FOR GFR 0.84 MG/DL (0.70-1.30); GLOMERULAR FILTRATION RATE > 60.0 (>60); GLUCOSE, FASTING 123 MG/DL (70-100); HDL CHOLESTEROL 48 MG/DL (>40); LDL CHOLESTEROL 90 MG/DL (<100); NON-HDL-C 108 MG/DL; POTASSIUM SERUM 4.2 MEQ/L (3.5-5.1); SODIUM LEVEL 140 MEQ/L (136-145); TOTAL PROTEIN 6.7 GM/DL (6.4-8.2); TRIGLYCERIDES LEVEL 91 MG/DL (<150)
[2020-04-24 10:53] LABS: CREATININE, URINE 94.1 MG/DL; MALB URINE SIEMENS 15.4 MG/L; MAU/CREAT RATIO 16.3 MCG/MG (0.0-30.0)
[2020-04-24 12:13] LABS: HEMOGLOBIN A1c 6.4 %
== END ==
LOC: M LAB 08:41
PROVIDERS: ATTEND Family Medicine
DX: E66.01 Morbid (severe) obesity due to excess calories (principal); E11.9 Type 2 diabetes mellitus without complications; E78.5 Hyperlipidemia, unspecified

== ENCOUNTER → 2020-08-22 | Outpatient (CLI) | payer OTHER | LOC: M LABSMTC 11:39 | PROVIDERS: ATTEND Anesthesiology | DX: Z01.812 Encounter for preprocedural laboratory examination (principal); Z20.822 Contact with and (suspected) exposure to COVID-19 ==

== ENCOUNTER 2020-08-27 06:56 | Day surgery (SDC) | payer OTHER ==
[~2020-08-27] VITALS: Ht 175.3 cm; Wt 169.4 kg
[~2020-08-27 06:56] MED LIST changes: +LIDOCAINE 1% MDV 20ML VIAL SQ PRN
[2020-08-27] MEDS ORDERED: CIPRODEX OTIC SUSP 7.5ML As Ordered ONE (07:54)
[2020-08-27] MEDS ORDERED: LR 1,000 ML IV ONE (08:00)
[2020-08-27] MEDS ORDERED: METOCLOPRAMIDE INJ 10MG/2ML VIAL (J2765 PER 1) As Ordered ONE (08:51)
[2020-08-27] MEDS ORDERED: ONDANSETRON 4MG/2ML VIAL As Ordered ONE (08:51)
[2020-08-27] MEDS ORDERED: dexameTHASONE 4 MG/ML 1ML VIAL (J1100 PER 1MG) As Ordered ONE (08:51)
[2020-08-27] MEDS ORDERED: MIDAZOLAM INJ 2MG/2ML VIAL (J2250 PER 1MG) As Ordered ONE (08:51)
[2020-08-27] MEDS ORDERED: fentaNYL 100 MCG/2 ML INJECTION (J3010) As Ordered ONE (08:51)
[2020-08-27] MEDS ORDERED: propofoL 200 MG/20 ML VIAL As Ordered ONE ×2 (08:51→08:52)
[2020-08-27] MEDS ORDERED: LIDOCAINE 2% 100MG/5ML SDV (FOR ANES.) As Ordered ONE (08:51)
[2020-08-27] MEDS ORDERED: ALBUTEROL 6.7GM INHALER **FOR ANES. CART/OMNICELL ONLY As Ordered ONE (08:52)
[2020-08-27] MEDS ORDERED: SUCCINYLCHOLINE 100 MG/5 ML SYRINGE (J0330) As Ordered ONE (09:11)
[2020-08-27] MEDS ORDERED: oxyCODONE 5MG TAB PO PRN (09:15)
[2020-08-27] MEDS ORDERED: ONDANSETRON 4MG/2ML VIAL IV PRN (09:15)
[2020-08-27] MEDS ORDERED: LR 1,000 ML IV SCH (09:15)
[2020-08-27] MEDS ORDERED: HYDROMORPHONE HCL 0.5 MG/ 0.5 ML SYRINGE (J1170 PER 1) IV PRN (09:15)
[2020-08-27] MEDS ORDERED: fentaNYL 100 MCG/2 ML INJECTION (J3010) IV PRN (09:15)
--- NOTE | 2020-08-27 09:21 | REP ---
INDICATION: POST OP IN PACU. COMPARISON: PA and lateral chest dated 05/24/2019. TECHNIQUE: Upright PA and lateral chest. FINDINGS: The lung borja are clear. Cardiac size is mildly enlarged, possibly artifact from magnification secondary to portable positioning The sg, mediastinum and skeletal structures are unremarkable. IMPRESSION: Essentially negative portable chest <Electronically signed by Richard Ingram > 08/27/20 0918
[2020-08-27 10:20] VITALS: BP 133/73
--- NOTE | 2020-08-27 13:44 | RO ---
OPERATIVE NOTE DATE OF OPERATION: 08/27/2020 PREOPERATIVE DIAGNOSIS: Left secretory otitis media. POSTOPERATIVE DIAGNOSIS: Left secretory otitis media. PROCEDURE: Left myringotomy with tube. SURGEON: Williams Flores M.D. CONTENT SPECIALIST: None. 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 He had a previous tube, which is extruded and his hearing decreased again. DESCRIPTION OF PROCEDURE: Satisfactory mask LMA ventilation was provided by anesthesia while the left ear was examined and cleaned under the microscope. We had a difficult approach to his ear because of his morbid obesity, as well his large anterior canal hump. However, it was possible to visualize the anterior portion of the drum. After proper positioning, an anterior foreign body was noted. This large clump of wax with a previously placed tube was removed from the canal. The tympanic membrane was well-seated. Anterior-inferior myringotomy with serous fluid suctioned. Ciprodex drops were instilled. A bevel bobbin tube inserted. Ciprodex drops instilled. He tolerated the procedure well and was then sent to recovery in satisfactory condition. He will be seen back in the office in one week.
== END 2020-08-27 10:25 | disposition home or self-care (01) ==
LOC: M SDC 06:56
PROVIDERS: ATTEND Specialist
DX: H65.22 Chronic serous otitis media, left ear (principal); E78.5 Hyperlipidemia, unspecified; E11.9 Type 2 diabetes mellitus without complications; G43.909 Migraine, unspecified, not intractable, without status migrainosus; Z79.84 Long term (current) use of oral hypoglycemic drugs; Z79.899 Other long term (current) drug therapy; F17.218 Nicotine dependence, cigarettes, with other nicotine-induced disorders
CPT/HCPCS: 69436; 71045; J0330; J1100; J2250; J2405; J2765; J3010

== ENCOUNTER 2020-08-29 10:03 | Emergency (ER) | payer OTHER ==
[~2020-08-29] VITALS: Ht 175.3 cm; Wt 172.7 kg
[~2020-08-29 10:03] MED LIST changes: -LIDOCAINE 1% MDV 20ML VIAL SQ PRN
--- NOTE | 2020-08-29 11:27 | REP ---
INDICATION: chest feels tight COMPARISON: 08/27/2020 as well as other prior exams. TECHNIQUE: PA/Lateral FINDINGS: Lungs: Clear, no infiltrate. Heart: Normal in size. Mediastinum: Mediastinal silhouette unremarkable. Pleural angles: Unremarkable.. Bones and soft tissues: Unremarkable. IMPRESSION: No acute pulmonary disease. <Electronically signed by Richard Birch > 08/29/20 [id number]
[2020-08-29 12:16] LABS: BASO # 0.1 10^3/uL (0.0-0.2); BASO % 0.6 % (0.0-1.0); EOS # 0.3 10^3/uL (0.0-0.5); HEMATOCRIT 42.6 % (42.0-52.0); HEMOGLOBIN 14.4 g/dl (13.5-17.5); LYMPH # 3.1 10^3/uL (1.5-5.0); LYMPH % 36.9 % (24.0-44.0); MEAN CORPUSCULAR HEMOGLOBIN 32.4 pg (27.0-33.0); MEAN CORPUSCULAR HGB CONC 33.8 g/dl (32.0-36.5); MEAN CORPUSCULAR VOLUME 95.9 fl (80.0-96.0); MONO # 0.6 10^3/uL (0.0-0.8); MONO % 7.3 % (2.0-8.0); NEUTROPHILS # 4.2 10^3/uL (1.5-8.5); PLATELET COUNT, AUTOMATED 183 10^3/uL (150-450); RED BLOOD COUNT 4.44 10^6/uL (4.30-6.10); WHITE BLOOD COUNT 8.3 10^3/uL (4.0-10.0)
[2020-08-29 12:48] LABS: ERYTHROCYTE SEDIMENTATION RATE 3 mm/hr (0-15)
[2020-08-29 12:55] LABS: ALBUMIN 3.8 GM/DL (3.2-5.2); ALT/SGPT 57 U/L (12-78); BILIRUBIN,TOTAL 0.3 MG/DL (0.2-1.0); BLOOD UREA NITROGEN 8 MG/DL (7-18); CARBON DIOXIDE LEVEL 29 MEQ/L (21-32); CHLORIDE LEVEL 103 MEQ/L (98-107); CPK CREATINE PHOSPHOKINASE 564 U/L (39-308); CREATININE FOR GFR 0.61 MG/DL (0.70-1.30); FREE T4 0.97 NG/DL (0.76-1.46); GLOMERULAR FILTRATION RATE > 60.0 (>60); GLUCOSE, FASTING 123 MG/DL (70-100); MB/CK RELATIVE INDEX 0.71 (< OR =4); NT-PRO BNP 16 PG/ML (<125); POTASSIUM SERUM 4.1 MEQ/L (3.5-5.1); SODIUM LEVEL 137 MEQ/L (136-145); TOTAL PROTEIN 6.7 GM/DL (6.4-8.2); TROPONIN I < 0.02 NG/ML (< 0.10)
[2020-08-29 13:33] VITALS: BP 136/75
== END 2020-08-29 13:41 | disposition home or self-care (01) ==
LOC: M ED 10:03
DX: E86.0 Dehydration (principal); E11.9 Type 2 diabetes mellitus without complications; E78.5 Hyperlipidemia, unspecified; E66.8 Other obesity; Z79.899 Other long term (current) drug therapy; Z79.84 Long term (current) use of oral hypoglycemic drugs; F17.210 Nicotine dependence, cigarettes, uncomplicated
CPT/HCPCS: 36415; 71046; 80053; 82550; 82553; 83880; 84439; 84443; 85025; 85652; 99283; U0003